=== PATIENT | male | born 1955 | race Caucasian/White ===

== ENCOUNTER 2017-12-27 16:15 | Inpatient (IN) | payer SELFPAY ==
[~2017-12-27] VITALS: Ht 177.8 cm; Wt 71.0 kg
[~2017-12-27 16:15] MED LIST: CYCL5TAB PO; TRAM50TA PO; Z.0.NO CURRENT MEDS
[2017-12-27 16:24] VITALS: BP 169/110; PULSE 98; RESP 20; TEMP 97.5; O2SAT 99
--- NOTE | 2017-12-27 17:01 | RADRPT ---
EXAM DATE/TIME: 12/27/2017 16:40 [place] COMPARISON: No previous studies available for comparison. INDICATIONS : Short of breath. MEDICAL HISTORY : None. SURGICAL HISTORY : None. ENCOUNTER: Initial ACUITY: 1 day PAIN SCORE: 0/10 LOCATION: Bilateral chest FINDINGS: No infiltrate, effusion or pneumothorax demonstrated. Heart size upper limits of normal. Thoracic aorta is mildly tortuous. There is a mild S-shaped thoracolumbar scoliosis. CONCLUSION: No acute cardiopulmonary disease demonstrated. Chapincito Patel MD on December 27, 2017 at 16:58 Board Certified Radiologist. This report was verified electronically.
[2017-12-27 17:28] VITALS: BP 155/105; PULSE 97; RESP 14; O2SAT 100
--- NOTE | 2017-12-27 17:36 | PD ---
HPI Chief Complaint: Respiratory Symptoms Time Seen by Provider: 17:19 Travel History International Travel<30 days: No Contact w/Intl Traveler<30days: No Traveled to known affect area: No History of Present Illness HPI This patient had a episode 4 days ago where he had discomfort in his left arm and felt diaphoretic and had palpitations. He did not have actual chest pain at that time. The following day he had recurrent pain in his left arm. He has had some intermittent dyspnea during the spells as well. He does not have productive cough or fever or injury. He is a smoker for the last 50 years and has family history of CAD. He never goes to physicians and takes no medications. He has no diagnosed cardiac or pulmonary disease. At this point he is not having chest pain or shortness of breath or left arm pain. Denies ever having stress testing. Symptom severity was moderate. No alleviating factors. No exacerbating factors. Duration was 5 hours. symptoms were nonexertional [facility] Social History Alcohol Use: No Tobacco Use: Yes Substance Use: No Allergies-Medications (Allergen,Severity, Reaction): Coded Allergies: No Known Allergies (Unverified , 12/05/12) Reported Meds & Prescriptions Reported Meds & Active Scripts Active Review of Systems General / Constitutional: No: Fever Eyes: No: Visual changes HENT: No: Headaches Cardiovascular: Positive: Palpitations Respiratory: Positive: Shortness of Breath Gastrointestinal: No: Abdominal Pain Genitourinary: No: Dysuria Musculoskeletal: Positive: Pain Skin: No Rash Neurologic: No: Weakness Psychiatric: No: Depression Endocrine: No: Polydipsia Hematologic/Lymphatic: No: Easy Bruising Physical Exam Narrative GENERAL: Well-nourished, well-developed patient in no apparent distress. SKIN: Focused skin assessment reveals no rash and nodules. Skin is Warm and dry. HEAD: Atraumatic. Normocephalic. EYES: Pupils equal and round. No scleral icterus. No injection or drainage. ENT: No nasal bleeding or discharge. Mucous membranes pink and moist. NECK: Trachea midline. No JVD. CARDIOVASCULAR: Regular rate and rhythm. No murmur appreciated. RESPIRATORY: No accessory muscle use. Clear to auscultation. Breath sounds equal bilaterally. GASTROINTESTINAL: Abdomen soft, non-tender, nondistended. Hepatic and splenic margins not palpable. MUSCULOSKELETAL: No obvious deformities. No clubbing. No cyanosis. No edema. NEUROLOGICAL: Awake and alert. No obvious cranial nerve deficits. Motor grossly within normal limits. Normal speech. PSYCHIATRIC: Appropriate mood and affect; insight and judgment normal. Data Data Last Documented VS Vital Signs Date Time Temp Pulse Resp B/P (MAP) Pulse Ox O2 Delivery O2 Flow Rate FiO2 12/27/17 17:28 97 14 155/105 (122) 100 Room Air 12/27/17 16:24 97.5 Orders Orders Complete Blood Count With Diff (12/27/17 16:26) Basic Metabolic Panel (Bmp) (12/27/17 16:26) Act Partial Throm Time (Ptt) (12/27/17 16:) Prothrombin Time / Inr (Pt) (12/27/17:) Magnesium (Mg) (12/27/17:) Ckmb (Isoenzyme) Profile (12/27/17 16:26) Troponin I (12/27/17 16:) Electrocardiogram (12/27/17:) Chest, Pa & Lat (12/27/17 16:) Central Office Technician / Telemetry BALTA.Q8H (12/27/17 17:31) Iv Access Insert/Monitor (12/27/17 17:31) Aspirin (Aspirin) (12/27/17 17:45) CKMB (12/27/17 17:08) CKMB% (12/27/17 17:08) Admit To Inpatient (12/27/17 ) Vital Signs (Adult) Q4H (12/27/17 18:43) Activity Oob With Assistance (12/27/17 18:43) Central Office Technician / Telemetry .CONTINUOUS (12/27/17 18:43) Diet Npo (12/27/17 Dinner) Sodium Chloride 0.9% Flush (Ns Flush) (12/27/17 18:45) Sodium Chloride 0.9% Flush (Ns Flush) (12/27/17 21:00) Basic Metabolic Panel (Bmp) (12/28/17 06:00) Complete Blood Count With Diff (12/28/17 06:00) Troponin I (12/27/17 23:00) Troponin I (12/28/17 05:00) Electrocardiogram (12/27/17 23:00) Electrocardiogram (12/28/17 05:00) Case Management Consult (12/27/17 18:43) Naloxone Inj (Narcan Inj) (12/27/17 18:45) Inpatient Certification (12/27/17 ) Consult Cardiology (12/27/17 ) Aspirin Ec (Ecotrin Ec) (12/28/17 09:00) Carvedilol (Coreg) (12/27/17 21:00) Admit Order (Ed Use Only) (12/27/17 18:46) Labs Laboratory Tests Test 12/27/17 17:08 White Blood Count 7.1 TH/MM3 Red Blood Count 5.14 MIL/MM3 Hemoglobin 15.6 GM/DL Hematocrit 47.4 % Mean Corpuscular Volume 92.2 FL Mean Corpuscular Hemoglobin 30.4 PG Mean Corpuscular Hemoglobin Concent 33.0 % Red Cell Distribution Width 14.1 % Platelet Count 238 TH/MM3 Mean Platelet Volume 9.4 FL Neutrophils (%) (Auto) 64.8 % Lymphocytes (%) (Auto) 22.5 % Monocytes (%) (Auto) 8.4 % Eosinophils (%) (Auto) 3.4 % Basophils (%) (Auto) 0.9 % Neutrophils # (Auto) 4.6 TH/MM3 Lymphocytes # (Auto) 1.6 TH/MM3 Monocytes # (Auto) 0.6 TH/MM3 Eosinophils # (Auto) 0.2 TH/MM3 Basophils # (Auto) 0.1 TH/MM3 CBC Comment DIFF FINAL Differential Comment Prothrombin Time 11.7 SEC Prothromb Time International Ratio 1.2 RATIO Activated Partial Thromboplast Time 26.7 SEC Blood Urea Nitrogen 24 MG/DL Creatinine 1.17 MG/DL Random Glucose 93 MG/DL Calcium Level 9.1 MG/DL Magnesium Level 2.1 MG/DL Sodium Level 141 MEQ/L Potassium Level 5.1 MEQ/L Chloride Level 107 MEQ/L Carbon Dioxide Level 27.3 MEQ/L Anion Gap 7 MEQ/L Estimat Glomerular Filtration Rate 63 ML/MIN Total Creatine Kinase 109 U/L Creatine Kinase MB 2.4 NG/ML Troponin I 33.60 NG/ML [facility] Medical Decision Making Medical Screen Exam Complete: Yes Emergency Medical Condition: Yes Medical Record Reviewed: Yes Differential Diagnosis ACS, angina, musculoskeletal pain Narrative Course I have reviewed the patient's electronic medical record. Patient symptoms are suspicious for an anginal variant despite the lack of actual chest pain. He has multiple risk factors for CAD including [id number] smoking history and family history of CAD I reviewed his EKG which shows sinus rhythm but does show PVCs but no ST elevation I reviewed his chest x-ray which is normal I gave him an aspirin Lab studies are sent CBC is normal Metabolic profile reasonably normal Troponin is come back quite elevated at 33 Presentation seems most consistent with a non-STEMI Patient had pain 3-4 days ago and probably had an acute WA at that time Still having a fair amount of PVCs I reviewed the case in detail with bilingual speech language pathologist on-call Dr. Mcgovern. He recommends aspirin and low-dose Lopressor and heparinizing him but no nitrates and CIC admission I also reviewed with the hospitalist who will admit Critical Care Narrative Aggregate critical care time was 40 minutes. Time to perform other separately billable procedures was not included in the critical care time. My time did not include minutes spent treating any other patients simultaneously or on activities that did not directly contribute to the patient's treatment. The services I provided to this patient were to treat and/or prevent clinically significant deterioration that could result in: Cardiopulmonary arrest, myocardial damage, cardiac arrhythmia I provided critical care services requiring my management, as noted below: Chart data review, documentation time, medication orders and management, vital sign assessments/reviewing monitor data, ordering and reviewing lab tests, ordering and interpreting/reviewing x-rays and diagnostic studies, care of the patient and discussion of the patient with the admitting physicians. Diagnosis Primary Impression: Non-STEMI (non-ST elevated myocardial infarction) Additional Impression: Bigeminy Admitting Information Admitting Physician Requests: Admit Kendell Byrd MD Dec 27, 2017 17:36
[2017-12-27] MEDS ORDERED: ASPIRIN 325 MG TAB PO ONE (17:45)
[2017-12-27 18:02] LABS: AUTOMATED NEUTROPHIL # 4.6 TH/MM3 (1.8-7.7); BASOPHIL # 0.1 TH/MM3 (0-0.2); BASOPHIL % 0.9 % (0.0-2.0); EOSINOPHIL # 0.2 TH/MM3 (0-0.4); EOSINOPHIL % 3.4 % (0.0-4.0); HEMATOCRIT 47.4 % (39.0-51.0); HEMOGLOBIN 15.6 GM/DL (13.0-17.0); LYMPH % 22.5 % (9.0-44.0); LYMPHOCYTE # 1.6 TH/MM3 (1.0-4.8); MEAN CELL VOLUME 92.2 FL (80.0-100.0); MEAN CORPUSCULAR HEMOGLOBIN 30.4 PG (27.0-34.0); MEAN PLATELET VOLUME 9.4 FL (7.0-11.0); MONO % 8.4 % (0.0-8.0); MONOCYTE # 0.6 TH/MM3 (0-0.9); NEUT % 64.8 % (16.0-70.0); PLATELET COUNT 238 TH/MM3 (150-450); RED BLOOD COUNT 5.14 MIL/MM3 (4.50-5.90); RED CELL DISTRIBUTION WIDTH 14.1 % (11.6-17.2); WHITE BLOOD COUNT 7.1 TH/MM3 (4.0-11.0)
[2017-12-27 18:07] LABS: INTERNATIONAL NORMALIZED RATIO 1.2 RATIO; PROTHROMBIN TIME - PATIENT 11.7 SEC (9.8-11.6)
[2017-12-27 18:15] LABS: BICARBONATE 27.3 MEQ/L (21.0-32.0); BLOOD UREA NITROGEN 24 MG/DL (7-18); CALCIUM 9.1 MG/DL (8.5-10.1); CHLORIDE 107 MEQ/L (98-107); CREATININE 1.17 MG/DL (0.60-1.30); GLOMERULAR FILTRATION RATE 63 ML/MIN (>89); GLUCOSE,RANDOM 93 MG/DL (74-106); MAGNESIUM 2.1 MG/DL (1.5-2.5); SODIUM (NA) 141 MEQ/L (136-145)
[2017-12-27] MEDS ORDERED: NALOXONE HCL 0.4 MG/ML AMP IV PUSH PRN (18:45)
[2017-12-27] MEDS ORDERED: SODIUM CHLORIDE 0.9% FLUSH 10 ML FLUSH IV FLUSH PRN (18:45)
[2017-12-27] MEDS ORDERED: HEPARIN SODIUM - IV 10,000 UNITS/10 ML VIAL IV ONE (19:00)
[2017-12-27] MEDS ORDERED: HEPARIN-D5W 25,000 U/250 ML 250 ML IV PRN (19:00)
[2017-12-27 19:19] VITALS: BP 162/93; PULSE 99; RESP 20; TEMP 98.8; O2SAT 100
[2017-12-27] MEDS ORDERED: MORPHINE SULFATE 2 MG/ML SYRINGE IV PUSH PRN (20:00)
--- NOTE | 2017-12-27 20:10 | HHI.HP ---
[facility] Primary Care Physician No Primary Care Physician Admission Diagnosis NSTEMI Diagnoses: Travel History International Travel<30 Days: No Contact w/Intl Traveler <30 Da: No Traveled to Known Affected Are: No History of Present Illness 62-year-old male with no significant past medical history last seen by a primary care physician in 1999 presents to the emergency department for the evaluation of shortness of breath and right arm pain. The patient states his shortness of breath started approximately 4-5 days ago he endorses right arm numbness and tingling with accompanying pain. He states he has chest pressure that is worse with lying down. He also states his shortness of breath is preventing him from sleeping at night because it is worse when he lies flat. Troponin elevated at 33.6. He denies any nausea/vomiting. No abdominal pain. No lateralizing signs/symptoms. Review of Systems Except as stated in HPI: all other systems reviewed are Neg Past Family Social History Past Medical History History of hypertension, not currently on any medications Past Surgical History None Reported Medications Reported Meds & Active Scripts Active No Active Prescriptions or Reported Medications Allergies: Coded Allergies: No Known Allergies (Unverified Allergy, Unknown, 12/27/17) Family History Father with CAD Social History Smokes approximately one pack per day. Denies alcohol and illicit drugs. Physical Exam Vital Signs Vital Signs Date Time Temp Pulse Resp B/P (MAP) Pulse Ox O2 Delivery O2 Flow Rate FiO2 12/27/17 19:19 98.8 99 20 162/93 (116) 100 Room Air 12/27/17 17:28 97 14 155/105 (122) 100 Room Air 12/27/17 17:28 24 100 Room Air 12/27/17 17:22 Room Air 12/27/17 16:24 97.5 98 20 169/110 (129) 99 Physical Exam GENERAL: male sitting up in bed SKIN: No rashes, ecchymoses or lesions. Cool and dry. HEAD: Atraumatic. Normocephalic. No temporal or scalp tenderness. EYES: Pupils equal round and reactive. Extraocular motions intact. No scleral icterus. No injection or drainage. ENT: Nose without bleeding, purulent drainage or septal hematoma. Throat without erythema, tonsillar hypertrophy or exudate. Uvula midline. Airway patent. NECK: Trachea midline. No JVD or lymphadenopathy. Supple, nontender, no meningeal signs. CARDIOVASCULAR: Regular rate and rhythm without murmurs, gallops, or rubs. RESPIRATORY: Clear to auscultation. Breath sounds equal bilaterally. No wheezes , rales, or rhonchi. GASTROINTESTINAL: Abdomen soft, non-tender, nondistended. No hepato-splenomegaly , or palpable masses. No guarding. MUSCULOSKELETAL: Extremities without clubbing, cyanosis, or edema. No joint tenderness, effusion, or edema noted. No calf tenderness. NEUROLOGICAL: Awake and alert. Cranial nerves II through XII intact. Motor and sensory grossly within normal limits. Normal speech. Laboratory Laboratory Tests Test 12/27/17 17:08 White Blood Count 7.1 Red Blood Count 5.14 Hemoglobin 15.6 Hematocrit 47.4 Mean Corpuscular Volume 92.2 Mean Corpuscular Hemoglobin 30.4 Mean Corpuscular Hemoglobin Concent 33.0 Red Cell Distribution Width 14.1 Platelet Count 238 Mean Platelet Volume 9.4 Neutrophils (%) (Auto) 64.8 Lymphocytes (%) (Auto) 22.5 Monocytes (%) (Auto) 8.4 Eosinophils (%) (Auto) 3.4 Basophils (%) (Auto) 0.9 Neutrophils # (Auto) 4.6 Lymphocytes # (Auto) 1.6 Monocytes # (Auto) 0.6 Eosinophils # (Auto) 0.2 Basophils # (Auto) 0.1 CBC Comment DIFF FINAL Differential Comment Prothrombin Time 11.7 Prothromb Time International Ratio 1.2 Activated Partial Thromboplast Time 26.7 Blood Urea Nitrogen 24 Creatinine 1.17 Random Glucose 93 Calcium Level 9.1 Magnesium Level 2.1 Sodium Level 141 Potassium Level 5.1 Chloride Level 107 Carbon Dioxide Level 27.3 Anion Gap 7 Estimat Glomerular Filtration Rate 63 Total Creatine Kinase 109 Creatine Kinase MB 2.4 Troponin I 33.60 Result Diagram: 12/27/17170712/27/171707 Caprini VTE Risk Assessment Caprini VTE Risk Assessment: Mod/High Risk (score >= 2) Caprini Risk Assessment Model Point Value = 1 Point Value = 2 Point Value = 3 Point Value = 5 Age 41-60 Minor surgery BMI > 25 kg/m2 Swollen legs Varicose veins or History of unexplained or recurrent spontaneous Oral contraceptives or hormone replacement Sepsis (< 1 month) Serious lung disease, including pneumonia (< 1 month) Abnormal pulmonary function Acute myocardial infarction Congestive heart failure (< 1 month) History of inflammatory bowel disease Medical patient at bed rest Age 61-74 Arthroscopic surgery Major open surgery (> 45 min) Laparoscopic surgery (> 45 min) Malignancy Confined to bed (> 72 hours) Immobilizing plaster cast Central venous access Age >= 75 History of VTE Family history of VTE Factor V Leiden Prothrombin [id number] Lupus anticoagulant Anticardiolipin antibodies Elevated serum homocysteine Heparin-induced thrombocytopenia Other congenital or acquired thrombophilia Stroke (< 1 month) Elective arthroplasty Hip, pelvis, or leg fracture Acute spinal cord injury (< 1 month) Prophylaxis Regimen Total Risk Factor Score Risk Level Prophylaxis Regimen 0-1 Low Early ambulation 2 Moderate Order ONE of the following: *Sequential Compression Device (SCD) *Heparin 5000 units SQ BID 3-4 Higher Order ONE of the following medications: *Heparin 5000 units SQ TID *Enoxaparin/Lovenox 40 mg SQ daily (WT < 150 kg, CrCl > 30 mL/min) *Enoxaparin/Lovenox 30 mg SQ daily (WT < 150 kg, CrCl > 10-29 mL/min) *Enoxaparin/Lovenox 30 mg SQ BID (WT < 150 kg, CrCl > 30 mL/min) AND/OR *Sequential Compression Device (SCD) 5 or more Highest Order ONE of the following medications: *Heparin 5000 units SQ TID (Preferred with Epidurals) *Enoxaparin/Lovenox 40 mg SQ daily (WT < 150 kg, CrCl > 30 mL/min) *Enoxaparin/Lovenox 30 mg SQ daily (WT < 150 kg, CrCl > 10-29 mL/min) *Enoxaparin/Lovenox 30 mg SQ BID (WT < 150 kg, CrCl > 30 mL/min) AND *Sequential Compression Device (SCD) Assessment and Plan Assessment and Plan Assessment/plan: 1. NSTEMI Initial troponin 33.6 EKG shows NSR with PVCs; no ST segment elevation or depression, personally reviewed Cardiology consulted, appreciate assistance Heparin bolus and drip Nothing by mouth Morphine for pain Aspirin Coreg 2. Hypertension As above FEN NPO NS at 100 cc/hr Electrolytes: Monitor and replete when necessary Heparin ggt Case management consulted to assist with outpatient follow-up Physician Certification 2 Midnight Certification Type: Admission for Inpatient Services Order for Inpatient Services The services are ordered in accordance with Medicare regulations or non- Medicare payer requirements, as applicable. In the case of services not specified as inpatient-only, they are appropriately provided as inpatient services in accordance with the 2-midnight benchmark. Estimated LOS (days): 2 2 days is the estimated time the patient will need to remain in the hospital, assuming treatment plan goals are met and no additional complications. Post-Hospital Plan: Not yet determined Stephanie Jeffers MD Dec 27, 2017 20:10
[2017-12-27 21:00] VITALS: BP 137/97; PULSE 80; PULSE 90; RESP 16; TEMP 98.2; O2SAT 100
[2017-12-27] MEDS: SODIUM CHLORIDE 0.9% FLUSH 10 ML FLUSH IV FLUSH SCH (21:00)
[2017-12-27] MEDS: CARVEDILOL 12.5 MG TAB PO SCH (21:09)
[2017-12-27] MEDS: SODIUM CHLOR 0.9% 1000 ML INJ 1,000 ML IV SCH (21:10)
[2017-12-27 22:00] VITALS: PULSE 86
[2017-12-27 23:00] VITALS: BP 106/81; PULSE 68; PULSE 78; RESP 16; TEMP 97.9; O2SAT 98
[2017-12-28] VITALS (22 sets, daily range): BP systolic 112–131; BP diastolic 72–93; PULSE 56–82; RESP 16–22; TEMP 97.5–98; O2SAT 97–99
[2017-12-28] MEDS ORDERED: HEPARIN SODIUM - IV 10,000 UNITS/10 ML VIAL IV PRN ×2 (01:00)
[2017-12-28 02:14] LABS: AUTOMATED NEUTROPHIL # 3.8 TH/MM3 (1.8-7.7); BASOPHIL # 0.1 TH/MM3 (0-0.2); EOSINOPHIL # 0.3 TH/MM3 (0-0.4); EOSINOPHIL % 4.3 % (0.0-4.0); HEMATOCRIT 39.8 % (39.0-51.0); HEMOGLOBIN 13.6 GM/DL (13.0-17.0); LYMPH % 32.1 % (9.0-44.0); LYMPHOCYTE # 2.2 TH/MM3 (1.0-4.8); MEAN CELL VOLUME 90.2 FL (80.0-100.0); MEAN CORPUSCULAR HEMOGLOBIN 30.9 PG (27.0-34.0); MEAN CORPUSCULAR HGB CONC 34.2 % (32.0-36.0); MEAN PLATELET VOLUME 8.9 FL (7.0-11.0); MONO % 7.7 % (0.0-8.0); MONOCYTE # 0.5 TH/MM3 (0-0.9); NEUT % 54.9 % (16.0-70.0); PLATELET COUNT 214 TH/MM3 (150-450); RED BLOOD COUNT 4.41 MIL/MM3 (4.50-5.90); WHITE BLOOD COUNT 6.9 TH/MM3 (4.0-11.0)
[2017-12-28 02:37] LABS: BICARBONATE 23.8 MEQ/L (21.0-32.0); CALCIUM 8.1 MG/DL (8.5-10.1); CREATININE 1.01 MG/DL (0.60-1.30)
[2017-12-28 02:40] LABS: TROPONIN I 26.2 NG/ML (0.02-0.05)
[2017-12-28] MEDS: SODIUM CHLOR 0.9% 1000 ML INJ 1,000 ML IV SCH ×2 (06:52→15:32)
[2017-12-28] MEDS: NITROGLYCERIN 2% OINT 1 GM PACKET TOPICAL SCH ×2 (06:54→17:15)
--- NOTE | 2017-12-28 08:04 | EKG ---
Date Performed: 12/27/2017 Time Performed: 18:33:50 PTAGE: 62 years EKG: SUPRAVENTRICULAR RHYTHM LOW QRS VOLTAGE IN EXTREMITY LEADS LEFT ANTERIOR FASCICULAR BLOCK M ODERATE T-WAVE ABNORMALITY, CONSIDER LATERAL ISCHEMIA ABNORMAL ECG NO PREVIOUS TRACING DOCTOR: Cleveland Alas Interpretating Date/Time 12/28/2017 08:02:54
--- NOTE | 2017-12-28 08:06 | EKG ---
Date Performed: 12/27/2017 Time Performed: 17:06:51 PTAGE: 62 years EKG: SUPRAVENTRICULAR RHYTHM LOW QRS VOLTAGE IN EXTREMITY LEADS LEFT ANTERIOR FASCICULAR BLOCK N ONSPECIFIC ST & T-WAVE ABNORMALITY ABNORMAL ECG NO PREVIOUS TRACING DOCTOR: Cleveland Alas Interpretating Date/Time 12/28/2017 08:06:04
[2017-12-28] MEDS: SODIUM CHLORIDE 0.9% FLUSH 10 ML FLUSH IV FLUSH SCH ×2 (08:59→21:00)
[2017-12-28] MEDS: CARVEDILOL 12.5 MG TAB PO SCH (09:00)
[2017-12-28] MEDS ORDERED: ASPIRIN EC 325 MG TABEC PO SCH (09:00)
[2017-12-28] MEDS ORDERED: HEPARIN-NS/PF FLUSH BAG 2,000 ML IV FLUSH ONE (11:17)
[2017-12-28] MEDS ORDERED: MIDAZOLAM HCL 2 MG/2 ML VIAL ONE (11:28)
--- NOTE | 2017-12-28 11:51 | MB ---
cc: Alec Pelaez MD DATE: 12/28/2017 For evaluation of chest pain and elevated troponin. Hugh Hastings is a 62-year-old man who has not been seeing a doctor in almost 20 years. He is an active smoker, a pack a day. His father has coronary disease. He describes getting shortness of breath and discomfort in his chest and right arm starting 5 days ago. He has had pressure in his chest and shortness of breath intermittently since then. Came in with an elevated troponin of 33.6. Denies use of cocaine or illicit drugs. He states his blood pressure was high years ago but has not been seeing anybody or taking any blood pressure medications. FAMILY HISTORY: His father has coronary disease. SOCIAL HISTORY: Notable for smoking. He lives on social security. PAST SURGICAL HISTORY: Negative. PHYSICAL EXAMINATION: Shows well-developed, well-nourished white male, in no acute distress. Initial blood pressures here were quite elevated. HEENT: Unremarkable. NECK: No JVD. No bruits. CHEST: Clear to auscultation. CARDIAC: S1, S2. Regular rate and rhythm. No murmurs, gallops. ABDOMEN: Soft, nontender, no masses or organomegaly. EXTREMITIES: No clubbing, cyanosis or edema. Chest x-ray is showing no acute disease. LABORATORIES: His CBC is mostly unremarkable. Creatinine is normal. Troponin has fallen from 33.6 to 26.2. EKG is markedly abnormal. There is a sinus rhythm, left anterior fascicular block, poor R-wave progression, lateral T-wave abnormality suggesting ischemia, cannot rule out anterior RI. IMPRESSION: Noncompliance with medical care; hypertension, untreated; evidence for a [id number] myocardial infarction with symptoms starting 5 days prior; tobaccoism. PLAN: Perform diagnostic cath, possible intervention. Informed consent has been obtained. MD ROBERTO Whitlock/BANG , 11:36 AM , 11:50 AM
[2017-12-28] MEDS ORDERED: STERILE WATER FOR INJECTION 10 ML VIAL ONE (12:11)
[2017-12-28] MEDS ORDERED: BIVALIRUDIN 250 MG VIAL ONE (12:11)
[2017-12-28] MEDS ORDERED: NITROGLYCERIN INJ 5 ML ONE (12:28)
--- NOTE | 2017-12-28 13:10 | EKG ---
Date Performed: 12/28/2017 Time Performed: 05:02:50 PTAGE: 62 years EKG: Sinus rhythm with PVC(s) Prolonged QT interval Left anterior fascicular block Possible anterior infarct - age und etermined Inferior/lateral T wave changes may be due to myocardial ischemia Low QRS voltages in limb leads Abnormal ECG PREVIOUS TRACING : 12/27/2017 22.55 DOCTOR: Cleveland Aals Interpretating Date/Time 12/28/2017 13:07:44
--- NOTE | 2017-12-28 13:11 | EKG ---
Date Performed: 12/27/2017 Time Performed: 22:55:54 PTAGE: 62 years EKG: Sinus rhythm with PVC(s) Prolonged QT interval Left anterior fascicular block Possible anterior infarct - age und etermined Possible left ventricular hypertrophy Lateral T wave changes may be due to hypertrophy and/ or ischemia Low QRS voltages in limb leads Abnormal ECG PREVIOUS TRACING : 12/27/2017 18.33 DOCTOR: Cleveland Alas Interpretating Date/Time 12/28/2017 13:08:21
[2017-12-28] MEDS ORDERED: CLOPIDOGREL 300 MG TAB ONE (13:17)
[2017-12-28] MEDS ORDERED: BIVALIRUDIN INJ 250 MG in SODIUM CHLORIDE 0.9% INJ 50 ML IV SCH (13:33)
[2017-12-28] MEDS ORDERED: SODIUM CHLOR 0.9% 1000 ML INJ 1,000 ML IV SCH (13:33)
[2017-12-28] MEDS ORDERED: oxyCODONE/ACETAMINOPHEN 5 MG/325 MG TAB PO PRN ×2 (13:45→14:45)
[2017-12-28] MEDS ORDERED: ONDANSETRON HCL 4 MG/2 ML VIAL IV PUSH PRN (13:45)
[2017-12-28] MEDS ORDERED: BACITRACIN OINT 0.9 GM PKT TOP ONE (13:45)
[2017-12-28] MEDS ORDERED: SODIUM CHLORIDE 0.9% FLUSH 10 ML FLUSH IV FLUSH PRN (13:45)
[2017-12-28] MEDS ORDERED: MISC INFORMATION XX ONE (13:45)
--- NOTE | 2017-12-28 13:46 | CATHPROC ---
[employer] HIS Report Study Information Study Number Admission Scheduled Start Study Start [id number] Dec 27 2017 6:48PM 12/28/2017 Dec 28 2017 11:27AM [place] Service Cardiac Catheterization Admit Source Facility Department Other [facility] - [facility] Physician and Clinical Staff Initial Alec Huerta Logistics System EngineerSam ViverosRN Logistics System EngineerAn Moser,RUBEN Recorder Lorenzo MIRANDA, Ramone Cloud,RT(R) Procedures Performed Procedure Location (Site) Vessel Name Angiogram LV LV Ventricle Coronary Angiograms LCA Left Coronary Coronary Angiograms RCA Right Coronary Drug Eluting Inflatio DIAG Prox Left Coronary Drug Eluting Inflatio LAD Mid Left Coronary Drug Eluting Inflatio LPDA CIRC L Heart Cath PTCA DIAG Prox Left Coronary PTCA ADD ON'S Wire insertion Fem Art (right) Femoral Art Equipment Time Oil Inspector Description Size Mfg Part Number Used/Scraped WIRE, WHISPER W/HYDROCOAT [id number] 12:38 UNGER [employer] 190CM Used 190CM *[id number] TRANSDUCER, TRUWAVE [id number] 11:33 OSUNA GUIDRY * Used W/STOCKCOCK *[id number] *[id number] *[id number] PIGTAIL ANG. 145 INFINITI [id number] CATHETER *[id number] *[id number] 13:18 DAIG/[facility] MEDICAL ANGIOSEAL, FR6 VIP FR 6 Used *[id number] 11:33 MEDLINE INDUSTRIES PACK, CCL CUSTOM * Used *[id number] 11:33 MEDLINE PACER PEN, SKIN DUAL W/ RULER * Used *[id number] 12:42 MEDTRONIC BALLOON, 1.5 X 10MM EUPHORA 10MM Used *[id number] 12:49 MEDTRONIC BALLOON, 2.0 X 20MM EUPHORA 20MM Used *[id number] BALLOON, 2.25 X 20MM NC [id number] 13:00 MEDTRONIC 20MM Used EUPHORA *[id number] 12:56 MEDTRONIC STENT, 2.25 26MM MINDY 2.25 26MM [id number] 13:12 MEDTRONIC STENT, 2.5 12MM MINDY 2.5 12MM Used *[id number] 12:29 MEDTRONIC STENT, 3.0 22MM MINDY 3.0 22MM Used *[id number] 12:11 Spoke MEDICAL 30 MAXX INDEFLATOR Used *[id number] 11:33 Spoke MEDICAL SHEATH, FR6.5 PRELUDE 11CM FR 6.5 038ACT Used *[id number] [id number] 11:33 Spoke MEDICAL WIRE, 3MMJ .035 180CM 180CM Used *[id number] 11:33 NAMIC MANIFOLD, 4 PORT * Used *[id number] 11:33 NYCOMED OMNIPAQUE, 350 MG, 100ML 100ML [id number] Used 12:11 NYCOMED OMNIPAQUE, 350 MG, 50ML 50ML [id number] Used [id number] 11:33 [place] MEDICAL BLANKET,WARM AIR CCL * Used *[id number] 12:19 [place] PRIME WIRE, VERRATA 185CM 185CM [id number] *[id number] Used Equipment Model, Serial, Lot Number and Expiration Data Description Model Number Serial Number Lot Number Expiration Date ANGIOSEAL, FR6 VIP [id number] 08-25-2018 BALLOON, 2.25 X 20MM DC [id number] 06-01-2019 EUPHORA STENT, 2.25 26MM MINDY [id number] 09-12-2019 STENT, 2.5 12MM MINDY [id number] 08-30-2019 STENT, 3.0 22MM MINDY [id number] 08-13-2019 History: Current Medications Medication Dosage/Unit Route Frequency Last Date/Time Taken Beta Samra ASA History: Allergies Allergy Reaction NKDA History: Risk Factors Family History of Hypertension Dyslipidemia Previous AK Previous Heart Failure Premature CAD Yes No Yes No No Prior Valve Prior PCI Prior CABG Surgery No No No Cerebrovascular Peripheral Artery Chronic Lung On Dialysis Diabetes Disease Disease Disease No No No No No History: Stress Tests Stress or Imaging Studies Performed No History: Other Current Smoker Method Packs a Day Years Used Pack Years Yes Cigarettes 1 47 47 Labs Hgb (g/dl) Hct (%) WBC (l/cumm) 11.60-17.00 35.00-51.00 4.00-11.00 13.6 39.8 6.9 Glucose (mg/dl) BUN (mg/dl) Creatinine (mg/dl) BUN:Creatinine (1:x) 74.00-106.00 7.00-18.00 0.50-1.30 10.00-20.00 86 23 1.0 23 Na (meq/l) K (meq/l) 136.00-145.00 3.50-5.10 142 4.1 Troponin I (ng/ml) CPK (u/l) CPK-MB (ng/ML) 0.02-0.05 26.00-308.00 0.50-3.60 26.2 109 Not Drawn Medication Medication Total Dose (Bolus/Oral) Medication Total Dosage/Unit 1% XYLOCAINE 10 mL ANGIOMAX BOLUS 11 mL NTG (IC) 150 mcg PLAVIX 600 mg VERSED 1 mg Medications (Bolus/Oral) Medication Time Given Dosage/Unit Administered By Reason VERSED 12/28/2017 11:46:35 AM 1 mg Sam Arroyo 1 mg VERSED given by Sam Arroyo RN via Peripheral IV. Ordered by Alec Pelaez. 1% XYLOCAINE 12/28/2017 11:47:14 AM 10 mL Alec Pelaez 10 mL 1% XYLOCAINE given by Alec Pelaez in Right Groin via Subcutaneous. Ordered by Alec Pelaez. ANGIOMAX BOLUS 12/28/2017 12:22:00 PM 11 mL An Albert 11 mL ANGIOMAX BOLUS given by An Albert RN via Peripheral IV. Ordered by Alec Pelaez. NTG (IC) 12/28/2017 1:02:31 PM 150 mcg Alec Pelaez 150 mcg NTG (IC) given by Alec Pelaez via Intra-coronary. Ordered by Alec Pelaez. PLAVIX 12/28/2017 1:30:21 PM 600 mg An Albert 600 mg PLAVIX given by An Albert, RUBEN via Oral. Ordered by Alec Pelaez. Medication (Drip) Medication Time Given Dosage/Unit Concentration/Unit Diluent (ml) Solution IV Bolus 12/28/2017 12:20:22 PM 100 mL (Bolus) NaCl .9 100 mL (Bolus) IV Bolus given by An Albert RN via Peripheral IV. Using NaCl .9. Ordered by Alec Carmona. Initial Case Assessment Cardiovascular HR NIBP 57 125/88 Edema Present Skin color Skin None Normal Warm Dry Circulatory - Right Pulses Dorsalis Pedis Femoral 2 2 Scale (0,1,2,3,4,d) Circulatory - Left Pulses Dorsalis Pedis Femoral 2 2 Scale (0,1,2,3,4,d) Neurological State Oriented to time-place- Alert Moves all extremities person Respiration - General SpO2 (%) 97 Chronological Log Time Study Chronological Log 11:14:34 Patient arrived via Bed. 11:14:36 Patient Name, D.O.B, / Armband Verified By R.N. 11:15:40 Pre-op and post- op instructions given; patient acknowledges understanding of instructions. 11:20:10 History and physical on the chart or being dictated. 11:20:19 Masha Prominences Protected Vitals capture started with the following parameters, Patient=Adult, Interval=5 min, Initial Pr koukqr=660 mmHg, 11:27:24 Deflation Rate=5 mmHg, Cuff placed on Unknown 11:27:38 Consent signed by the physician and the patient and verified by the [facility] staff. 11:27:43 Patient has been NPO for More than 6Hrs. 11:27:59 HR=67 bpm, YMYR=847/88 mmhg, SpO2=95.0 %, Resp=23 B/min, Susan=10 11:33:02 HR=66 bpm, JEFG=762/75 mmhg, SpO2=97.0 %, Resp=21 B/min, Adrian=2 11:36:38 MD paged 11:36:50 Pressure channel 1 zeroed. 11:37:59 HR=68 bpm, QLZQ=844/91 mmhg, SpO2=98 %, Resp=18 B/min, Adrian=2 11:40:44 MD arrived. 11:40:48 Reference ECG taken 11:41:12 A # 20 IV was noted in the Forearm (right). Grade = 0 11:42:36 Skin Breakdown- none reported by pt 11:43:00 HR=65 bpm, YHTL=274/86 mmhg, Resp=16 B/min, Adrian=2 Assessment: Initial Case, HR=57 BPM, KKVI=009/88 mmhg, Edema=None, Color=Normal, Skin = Warm, D ry Right Pulses: Titus Ped=2, Femoral=2 11:43:51 Left Pulses: Titus Ped=2, Femoral=2 Neurological: State=Alert, Ox3, STEPHENS Respiration: SpO2=97 % Time Out. Correct patient, correct procedure, correct physician, power injector loaded, or not loaded with contrast with 11:45:28 surgical team present. Time Out Concurred by MD and individual staff in procedure. 11:45:46 Case Start 11:46:35 1 mg VERSED given by Sam Arroyo, RN via Peripheral IV. Ordered by Alec Pelaez. 11:47:14 10 mL 1% XYLOCAINE given by Alec Pelaez in Right Groin via Subcutaneous. Ordered by Alec Santos. 11:47:57 HR=73 bpm, OELW=258/90 mmhg, SpO2=95.0 %, Resp=23 B/min, Adrian=2 11:48:27 Access site was Right Femoral Artery. A PIGTAIL ANG. 145 INFINITI CATHETER FR 6 was advanced over a wire. OMNIPAQUE, 350 MG, 100ML 10 0ML was 11:48:58 used for injections. Recorded Pressure: LV, HR=71, Condition=Condition 1 11:49:55 (Left Ventricle) LV 118/13/26 11:50:35 The LV was injected at 10 cc/sec for a total of 40. OMNIPAQUE, 350 MG, 100ML 100ML used. Recorded Pressure: LV, Ao, HR=77, Condition=Condition 1 11:51:43 (Left Ventricle) LV 105/7/14, (Aorta) Ao 105/71/85 11:52:58 HR=75 bpm, WYFM=780/86 mmhg, Resp=23 B/min, Adrian=2 After removing the current catheter a JL 4.5 INFINITI CATHETER FR 6 was advanced over a WIRE, 3 MMJ .035 180CM 11:53:22 180CM. 11:57:37 The LCA was injected and visualized at various angles. OMNIPAQUE, 350 MG, 100ML 100ML used . 11:58:40 HR=73 bpm, ZIEJ=661/83 mmhg, SpO2=96.0 %, Resp=20 B/min, Adrian=2 After removing the current catheter a 3DRC INFINITI CATHETER FR 6 was advanced over a WIRE, 3MM J .035 180CM 11:59:05 180CM. 12:00:58 The RCA was injected and visualized at various angles. OMNIPAQUE, 350 MG, 100ML 100ML used . 12:03:00 HR=69 bpm, BDVY=599/80 mmhg, SpO2=95.0 %, Resp=21 B/min, Adrian=2 12:03:50 Activated Clotting Time Drawn 12:08:02 HR=71 bpm, FGTT=255/87 mmhg, SpO2=97.0 %, Resp=20 B/min, Adrian=2 12:08:22 Catheter was removed 12:08:44 ACT (Normal Range 90-180) = 198 12:10:47 OMNIPAQUE, 350 MG, 100ML 100ML and 30 MAXX INDEFLATOR added. 12:13:03 HR=72 bpm, XGSI=485/89 mmhg, SpO2=98.0 %, Resp=21 B/min, Adrian=2 A XB 4.5 GUIDE CATHETER FR 6 was advanced over a wire. OMNIPAQUE, 350 MG, 100ML 100ML was used for 12:14:15 injections. Recorded Pressure: Ao, HR=64, Condition=Condition 1 12:15:33 (Aorta) Ao 122/79/99 12:15:55 Pressure channel 1 zeroed. 12:17:45 A PRIME WIRE, VERRATA 185CM 185CM was inserted via Fem Art (right). 12:18:02 HR=72 bpm, PXUM=237/88 mmhg, SpO2=97.0 %, Resp=18 B/min, Adrian=2 12:20:22 100 mL (Bolus) IV Bolus given by An Alebrt RN via Peripheral IV. Using NaCl .9. Orde red by Alec Pelaez. 12:22:00 11 mL ANGIOMAX BOLUS given by An Albert RN via Peripheral IV. Ordered by Adrian Pelaez. 12:23:01 HR=73 bpm, DWBY=276/90 mmhg, SpO2=97 %, Resp=19 B/min, Pain=0, Susan=10, Adrian=2 12:23:56 Interventional wire has crossed the lesion 12:25:52 Flow Wire was was placed in the LAD Mid. The FFR measures ~FFR~ percent. The IFR measures 0 .8 Percent. 12:28:04 HR=66 bpm, EPGS=635/82 mmhg, SpO2=99 %, Resp=18 B/min, Pain=0, Susan=10, Adrian=2 A STENT, 3.0 22MM MINDY 3.0 22MM was advanced through a XB 4.5 GUIDE CATHETER FR 6 over a PRIME WIRE, 12:30:15 VERRATA 185CM 185CM. A STENT, 3.0 22MM MINDY 3.0 22MM was deployed using a 30 MAXX INDEFLATOR at 20 atmospheres for 35 seconds in 12:31:22 the LAD Mid. 12:32:11 Delivery device removed 12:33:05 HR=69 bpm, ICVH=015/90 mmhg, SpO2=98 %, Resp=23 B/min, Pain=0, Susan=10, Adrian=2 12:34:09 Wire removed from LAD inserted into diagonal 12:37:18 Wire removed 12:38:04 HR=67 bpm, OULS=542/88 mmhg, SpO2=98 %, Resp=21 B/min, Pain=0, Susan=10, Adrian=2 12:38:34 A WIRE, WHISPER W/HYDROCOAT 190CM 190CM was inserted via Fem Art (right). A BALLOON, 1.5 X 10MM EUPHORA 10MM was inserted over WIRE, WHISPER W/HYDROCOAT 190CM 190CM via the 12:42:09 DIAG Prox. 12:43:05 HR=67 bpm, XLMW=645/91 mmhg, Resp=18 B/min, Pain=0, Adrian=2 A BALLOON, 1.5 X 10MM EUPHORA 10MM over a WIRE, WHISPER W/HYDROCOAT 190CM 190CM in the DIAG Pro x 12:44:29 was inflated using a 30 MAXX INDEFLATOR at 8 maxx for 15 sec. A BALLOON, 1.5 X 10MM EUPHORA 10MM over a WIRE, WHISPER W/HYDROCOAT 190CM 190CM in the DIAG Pro x 12:45:18 was inflated using a 30 MAXX INDEFLATOR at 8 maxx for 15 sec. A BALLOON, 1.5 X 10MM EUPHORA 10MM over a WIRE, WHISPER W/HYDROCOAT 190CM 190CM in the DIAG Pro x 12:45:39 was inflated using a 30 MAXX INDEFLATOR at 8 maxx for 15 sec. A BALLOON, 1.5 X 10MM EUPHORA 10MM over a WIRE, WHISPER W/HYDROCOAT 190CM 190CM in the DIAG Pro x 12:46:05 was inflated using a 30 MAXX INDEFLATOR at 14 maxx for 25 sec. A BALLOON, 1.5 X 10MM EUPHORA 10MM over a WIRE, WHISPER W/HYDROCOAT 190CM 190CM in the DIAG Pro x 12:46:30 was inflated using a 30 MAXX INDEFLATOR at 14 maxx for 25 sec. 12:48:37 HR=72 bpm, SXLR=734/95 mmhg, SpO2=99.0 %, Resp=19 B/min, Pain=0, Adrian=2 12:48:49 Balloon Removed. A BALLOON, 2.0 X 20MM EUPHORA 20MM was inserted over WIRE, WHISPER W/HYDROCOAT 190CM 190CM via the 12:49:02 DIAG Prox. A BALLOON, 2.0 X 20MM EUPHORA 20MM over a WIRE, WHISPER W/HYDROCOAT 190CM 190CM in the DIAG Pro x 12:51:50 was inflated using a 30 MAXX INDEFLATOR at 10 maxx for 25 sec. A BALLOON, 2.0 X 20MM EUPHORA 20MM over a WIRE, WHISPER W/HYDROCOAT 190CM 190CM in the DIAG Pro x 12:52:30 was inflated using a 30 MAXX INDEFLATOR at 10 maxx for 25 sec. 12:53:09 HR=71 bpm, DXTV=760/72 mmhg, SpO2=97.0 %, Resp=20 B/min, Pain=0, Adrian=2 12:54:20 Balloon Removed. A STENT, 2.25 26MM MINDY 2.25 26MM was advanced through a XB 4.5 GUIDE CATHETER FR 6 over a WIRE , WHISPER 12:55:23 W/HYDROCOAT 190CM 190CM. A STENT, 2.25 26MM MINDY 2.25 26MM was deployed using a 30 MAXX INDEFLATOR at 14 atmospheres for 30 seconds 12:56:43 in the DIAG Prox. 12:58:08 HR=70 bpm, NPIJ=903/85 mmhg, SpO2=98.0 %, Resp=20 B/min, Pain=0, Adrian=2 12:58:33 Delivery device removed A BALLOON, 2.25 X 20MM NC EUPHORA 20MM was inserted over WIRE, WHISPER W/HYDROCOAT 190CM 190CM via 12:59:54 the DIAG Prox. A BALLOON, 2.25 X 20MM NC EUPHORA 20MM over a WIRE, WHISPER W/HYDROCOAT 190CM 190CM in the DIAG 13:01:35 Prox was inflated using a 30 MAXX INDEFLATOR at 20 maxx for 25 sec. 13:02:31 150 mcg NTG (IC) given by Alec Pelaez via Intra-coronary. Ordered by Alec Pelaez. 13:03:05 HR=67 bpm, QVWX=866/82 mmhg, Resp=23 B/min, Pain=0, Adrian=2 13:03:13 Balloon Removed. 13:06:05 Wire redirected into PDA 13:08:08 HR=70 bpm, SHBN=203/81 mmhg, SpO2=98.0 %, Resp=21 B/min, Pain=0, Adrian=2 A STENT, 2.5 12MM MINDY 2.5 12MM was advanced through a XB 4.5 GUIDE CATHETER FR 6 over a WIRE, WHISPER 13:11:48 W/HYDROCOAT 190CM 190CM. A STENT, 2.5 12MM MINDY 2.5 12MM was deployed using a 30 MAXX INDEFLATOR at 12 atmospheres for 4 5 seconds in 13:12:18 the LPDA. 13:13:03 HR=69 bpm, KRZK=147/90 mmhg, Resp=15 B/min, Pain=0, Adrian=2 13:14:21 Delivery device removed 13:16:09 Wire removed 13:16:13 Catheter was removed 13:17:12 An injection in the Fem Art (right) was made through the SHEATH, FR6.5 PRELUDE 11CM FR 6.5 . 13:17:51 ANGIOSEAL, FR6 VIP FR 6 placement in the Fem Art (right) 13:18:06 HR=74 bpm, ZNAT=078/102 mmhg, SpO2=98.0 %, Resp=23 B/min, Pain=0, Adrian=2 13:19:48 Case End 13:20:35 Sterile dressing applied to site 13:20:38 No case complications noted. 13:23:07 HR=76 bpm, YDKX=301/88 mmhg, SpO2=98.0 %, Resp=18 B/min, Pain=0, Adrian=2 13:23:27 Implantable Device card placed in patient's chart. 13:23:30 Bedside Report will be given. 13:25:25 Vitals capture stopped. 13:25:47 A Left Heart Cath was performed. 13:26:[facility] 13:29:23 [facility] called. Spoke to Vi 13:30:21 600 mg PLAVIX given by An Albert RN via Oral. Ordered by Alec Pelaez. End Study - Contrast Media Used In Study Contrast Total Opened (mL) Total Used (mL) Total Wasted (mL) Omnipaque 225 225 0 End Study - Maximum Contrast Load Max Contrast Load (mL) 357.5 End Study - Radiation Exposure Fluoro Time (minutes) 21.5 End Study - Patient Disposition Complications Transferred To Interventional Outcome No Telemetry Bed successful
[2017-12-28] MEDS ORDERED: IOHEXOL 350 MG/ML 100 ML BTL (for Cath Lab) OTHER ONE (14:09)
[2017-12-28] MEDS ORDERED: IOHEXOL 350 MG/ML 50 ML BTL (for Cath Lab) OTHER ONE (14:09)
--- NOTE | 2017-12-28 14:10 | MA ---
cc: Alec Pelaez MD DATE: 12/28/2017 PROCEDURE: 1. Left heart catheterization, left ventriculography, coronary angiography. 2. Primary stenting of the mid-left anterior descending artery. 3. Balloon angioplasty and stenting of the second diagonal branch of the left anterior descending artery. 4. Direct stenting of the left posterior descending artery branch. 5. Right femoral artery angiography with Angio-Seal placement. DESCRIPTION OF PROCEDURE: The patient was brought to the cardiac catheterization lab under urgent conditions. The right groin was prepped and draped in sterile fashion. Using 1% lidocaine for local anesthesia, a 6.5-Chinese sheath was inserted in the right femoral artery. Next, left ventricular pressure was recorded using an angled pigtail catheter, followed by left ventriculography and then a pullback. Left coronary angiography was completed using a left 4.5 Cassandra catheter. Right coronary angiography was completed using a 3DRC catheter. I studied these films and elected to perform intervention. A 6-Chinese XB 4.5 guiding catheter was used to engage the left main. I then did IFR measurements on the mid-LAD with a value of 0.89. I then directly stented the mid-LAD using a 3.0 x 22 mm Josep stent at 20 atmospheres. There was a nice step up in both sides of the stent with an excellent angiographic result. Next, I tried to wire the diagonal branch. I could not get the wire to easily cross and went to a Whisper wire; this still would not cross. Using a 1.5 balloon to buttress the wire, I was able to get it across the diagonal branch with the wire. Serial dilations were performed with the 1.5 balloon and then a 2.0 balloon and then I stented the diagonal using a 2.25 x 26 mm Josep stent deployed at 14 atmospheres. The proximal end of the stent was then postdilated using a 2.25 x 20 mm NonCompliant balloon. An excellent angiographic result was achieved. I then directed the Whisper wire down the distal circumflex and across the left posterior descending artery lesion. I then direct stented this utilizing a 2.5 x 12 mm [place] at 12 atmospheres with complete resolution of that stenosis. Guiding catheter was then removed. Angiography was then obtained of the right femoral artery via the sheath, followed by uncomplicated Angio-Seal placement with good hemostasis. There were no complications. The patient tolerated the procedure well. FINDINGS: I. HEMODYNAMICS: Left ventricular pressure is 105/7 with an end-diastolic pressure of 14. Aortic pressure is 122/79 with a mean of 99. There was no gradient during pullback from the left ventricle to the aorta. II. LEFT VENTRICULOGRAPHY: Left ventriculography shows a severely globally hypokinetic left ventricle. There was 1+ mitral regurgitation at the apex. The left ventricle actually looks akinetic. Estimated ejection fraction is no greater than 15%. III. CORONARY ANGIOGRAPHY: The left main coronary artery is large and normal. It bifurcates into the LAD and circumflex vessels. The left anterior descending artery gives off 2 diagonal branches. The first diagonal branch has irregularities only. The proximal LAD has about 20% to 30% disease. The mid-LAD after the second diagonal branch has a long 70% stenosis with an IFR of 0.79. The second diagonal branch has a 99% stenosis with GILBERT grade 1 flow. The circumflex artery is dominant. This vessel has diffuse disease distally. There are two 40-50% stenoses and then the posterior descending artery branch has a focal 90-95% stenosis. IV. RESULTS OF INTERVENTION: 1. Following stenting of the mid-LAD 0% residual stenosis had been achieved with GILBERT-3 flow. 2. Following stenting of the diagonal branch a 0% stenosis had been achieved with GILBERT-3 flow. 3. Following stenting of the left posterior descending artery branch, a 0% residual stenosis had been achieved with GILBERT-3 flow. CONCLUSIONS: 1. Severe 3-vessel coronary artery disease. 2. Critically severe LV dysfunction. 3. Successful drug-eluting stent implantation of the mid-left anterior descending, the second diagonal branch and the left posterior descending artery branch. PLAN: The patient may need to be continued on aspirin and Plavix long-term. We will introduce SERGIO inhibitor and beta blockers as hemodynamics permit, will check his lipid values and add statin therapy as appropriate. MD ROBERTO Whitlock/BRITNEY , 01:32 PM , 02:09 PM
[2017-12-28 14:43] LABS: CHOLESTEROL/ HDL RATIO 3.99 RATIO; DIRECT BILIRUBIN ADULT 0.2 MG/DL (0.0-0.2); HDL CHOLESTEROL 29.3 MG/DL (40.0-60.0); INDIRECT BILIRUBIN 0.3 MG/DL (0.0-0.8); TOTAL BILIRUBIN ADULT 0.5 MG/DL (0.2-1.0); TOTAL PROTEIN 5.6 GM/DL (6.4-8.2)
--- NOTE | 2017-12-28 14:43 | HHI.PR ---
Subjective Remarks 62-year-old male with no significant past medical history last seen by a primary care physician in 1999 presents to the emergency department for the evaluation of shortness of breath and right arm pain. The patient states his shortness of breath started approximately 4-5 days ago he endorses right arm numbness and tingling with accompanying pain. He states he has chest pressure that is worse with lying down. He also states his shortness of breath is preventing him from sleeping at night because it is worse when he lies flat. Troponin elevated at 33.6. He denies any nausea/vomiting. No abdominal pain. No lateralizing signs/symptoms. 4-4 HAD CARDIAC CATH TODAY WITH DR OVALLES HAD 3VESSEL CAD AND HAD STENTS PLACED DW RN AND PT AND CASE MANAGEMENT AND FAMILY RECOMMENDED SMOKING CESSATION Objective Vitals Vital Signs Date Time Temp Pulse Resp B/P (MAP) Pulse Ox O2 Delivery O2 Flow Rate FiO2 12/28/17 11:00 73 12/28/17 10:00 70 12/28/17 09:00 78 12/28/17 08:00 78 12/28/17 07:30 98.0 56 22 117/72 (87) 98 12/28/17 07:00 70 12/28/17 06:00 78 12/28/17 05:00 79 12/28/17 04:00 79 12/28/17 03:00 78 12/28/17 03:00 97.7 67 16 112/80 (91) 98 12/28/17 02:00 76 12/28/17 01:00 82 12/28/17 00:00 79 12/27/17 23:00 78 12/27/17 23:00 97.9 68 16 106/81 (89) 98 12/27/17 22:00 86 12/27/17 21:00 90 12/27/17 21:00 98.2 80 16 137/97 (110) 100 12/27/17 19:19 98.8 99 20 162/93 (116) 100 Room Air 12/27/17 17:28 97 14 155/105 (122) 100 Room Air 12/27/17 17:28 24 100 Room Air 12/27/17 17:22 Room Air 12/27/17 16:24 97.5 98 20 169/110 (129) 99 I/O 4/3/18 4/12/1112/27/17 12/28/17 12/28/17 12/28/17 06:59 14:59 22:59 06:59 14:59 22:59 Intake Total 2.5 ml Output Total 200 ml Balance -197.5 ml Intake Oral 0 ml IV Total 2.5 ml Output Urine Total 200 ml # Bowel Movements 0 Result Diagram: 12/28/17 0200 12/28/17 0200 Other Results Laboratory Tests Test 12/27/17 17:08 12/28/17 02:00 12/28/17 10:56 White Blood Count 7.1 TH/MM3 6.9 TH/MM3 Red Blood Count 5.14 MIL/MM3 4.41 MIL/MM3 Hemoglobin 15.6 GM/DL 13.6 GM/DL Hematocrit 47.4 % 39.8 % Mean Corpuscular Volume 92.2 FL 90.2 FL Mean Corpuscular Hemoglobin 30.4 PG 30.9 PG Mean Corpuscular Hemoglobin Concent 33.0 % 34.2 % Red Cell Distribution Width 14.1 % 14.0 % Platelet Count 238 TH/MM3 214 TH/MM3 Mean Platelet Volume 9.4 FL 8.9 FL Neutrophils (%) (Auto) 64.8 % 54.9 % Lymphocytes (%) (Auto) 22.5 % 32.1 % Monocytes (%) (Auto) 8.4 % 7.7 % Eosinophils (%) (Auto) 3.4 % 4.3 % Basophils (%) (Auto) 0.9 % 1.0 % Neutrophils # (Auto) 4.6 TH/MM3 3.8 TH/MM3 Lymphocytes # (Auto) 1.6 TH/MM3 2.2 TH/MM3 Monocytes # (Auto) 0.6 TH/MM3 0.5 TH/MM3 Eosinophils # (Auto) 0.2 TH/MM3 0.3 TH/MM3 Basophils # (Auto) 0.1 TH/MM3 0.1 TH/MM3 CBC Comment DIFF FINAL DIFF FINAL Differential Comment Prothrombin Time 11.7 SEC Prothromb Time International Ratio 1.2 RATIO Activated Partial Thromboplast Time 26.7 SEC 35.3 SEC 33.0 SEC Blood Urea Nitrogen 24 MG/DL 23 MG/DL Creatinine 1.17 MG/DL 1.01 MG/DL Random Glucose 93 MG/DL 86 MG/DL Calcium Level 9.1 MG/DL 8.1 MG/DL Magnesium Level 2.1 MG/DL Sodium Level 141 MEQ/L 142 MEQ/L Potassium Level 5.1 MEQ/L 4.1 MEQ/L Chloride Level 107 MEQ/L 111 MEQ/L Carbon Dioxide Level 27.3 MEQ/L 23.8 MEQ/L Anion Gap 7 MEQ/L 7 MEQ/L Estimat Glomerular Filtration Rate 63 ML/MIN 75 ML/MIN Total Creatine Kinase 109 U/L Creatine Kinase MB 2.4 NG/ML Troponin I 33.60 NG/ML 26.20 NG/ML 22.30 NG/ML Imaging Last Impressions Chest X-Ray 12/27/17 1626 Signed Impressions: Service Date/Time: Wednesday, December 27, 2017 16:40 - CONCLUSION: No acute cardiopulmonary disease demonstrated. Chapincito Patel MD Objective Remarks GENERAL: Awake alert and oriented 3 talkative not so cooperative appears stated age SKIN: Warm and dry. HEAD: Atraumatic. Normocephalic. EYES: Pupils equal and round. No scleral icterus. No injection or drainage. Extraocular muscles intact ENT: No nasal bleeding or discharge. Mucous membranes pink and moist. Tongue is midline NECK: Trachea midline. No JVD. Supple CARDIOVASCULAR: Regular rate and rhythm. S1-S2 no S3 or S4 no heave or thrill or rub or gallop RESPIRATORY: No accessory muscle use. Clear to auscultation. Breath sounds equal bilaterally. GASTROINTESTINAL: Abdomen soft, non-tender, nondistended. Hepatic and splenic margins not palpable. MUSCULOSKELETAL: Extremities without clubbing, cyanosis, or edema. No obvious deformities. RIGHT GROIN IS STABLE NEUROLOGICAL: Awake and alert. No obvious cranial nerve deficits. Motor grossly within normal limits. Five out of 5 muscle strength in the arms and legs. Normal speech. PSYCHIATRIC: INAppropriate mood and affect; insight and judgment ABnormal/ limited. Procedures 1. Left heart catheterization, left ventriculography, coronary angiography. 2. Primary stenting of the mid-left anterior descending artery. 3. Balloon angioplasty and stenting of the second diagonal branch of the left anterior descending artery. 4. Direct stenting of the left posterior descending artery branch. 5. Right femoral artery angiography with Angio-Seal placement. DESCRIPTION OF PROCEDURE: The patient was brought to the cardiac catheterization lab under urgent conditions. The right groin was prepped and draped in sterile fashion. Using 1% lidocaine for local anesthesia, a 6.5-[place]izen [place] sheath was inserted in the right femoral artery. Next, left ventricular pressure was recorded using an angled pigtail catheter, followed by left ventriculography and then a pullback. Left coronary angiography was completed using a left 4.5 Cassandra catheter. Right coronary angiography was completed using a 3DRC catheter. I studied these films and elected to perform intervention. A 6-Citizen [place] XB 4.5 guiding catheter was used to engage the left main. I then did IFR measurements on the mid-LAD with a value of 0.89. I then directly stented the mid-LAD using a 3.0 x 22 mm Josep stent at 20 atmospheres. There was a nice step up in both sides of the stent with an excellent angiographic result. Next, I tried to wire the diagonal branch. I could not get the wire to easily cross and went to a Whisper wire; this still would not cross. Using a 1.5 balloon to buttress the wire, I was able to get it across the diagonal branch with the wire. Serial dilations were performed with the 1.5 balloon and then a 2.0 balloon and then I stented the diagonal using a 2.25 x 26 mm [place] stent deployed at 14 atmospheres. The proximal end of the stent was then postdilated using a 2.25 x 20 mm NonCompliant balloon. An excellent angiographic result was achieved. I then directed the Whisper wire down the distal circumflex and across the left posterior descending artery lesion. I then direct stented this utilizing a 2.5 x 12 mm [place] at 12 atmospheres with complete resolution of that stenosis. Guiding catheter was then removed. Angiography was then obtained of the right femoral artery via the sheath, followed by uncomplicated Angio-Seal placement with good hemostasis. There were no complications. The patient tolerated the procedure well. FINDINGS: I. HEMODYNAMICS: Left ventricular pressure is 105/7 with an end-diastolic pressure of 14. Aortic pressure is 122/79 with a mean of 99. There was no gradient during pullback from the left ventricle to the aorta. II. LEFT VENTRICULOGRAPHY: Left ventriculography shows a severely globally hypokinetic left ventricle. There was 1+ mitral regurgitation at the apex. The left ventricle actually looks akinetic. Estimated ejection fraction is no greater than 15%. III. CORONARY ANGIOGRAPHY: The left main coronary artery is large and normal. It bifurcates into the LAD and circumflex vessels. The left anterior descending artery gives off 2 diagonal branches. The first diagonal branch has irregularities only. The proximal LAD has about 20% to 30% disease. The mid-LAD after the second diagonal branch has a long 70% stenosis with an IFR of 0.79. The second diagonal branch has a 99% stenosis with GILBERT grade 1 flow. The circumflex artery is dominant. This vessel has diffuse disease distally. There are two 40-50% stenoses and then the posterior descending artery branch has a focal 90-95% stenosis. IV. RESULTS OF INTERVENTION: 1. Following stenting of the mid-LAD 0% residual stenosis had been achieved with GILBERT-3 flow. 2. Following stenting of the diagonal branch a 0% stenosis had been achieved with GILBERT-3 flow. 3. Following stenting of the left posterior descending artery branch, a 0% residual stenosis had been achieved with GILBERT-3 flow. CONCLUSIONS: 1. Severe 3-vessel coronary artery disease. 2. Critically severe LV dysfunction. 3. Successful drug-eluting stent implantation of the mid-left anterior descending, the second diagonal branch and the left posterior descending artery branch. PLAN: The patient may need to be continued on aspirin and Plavix long-term. We will introduce SERGIO inhibitor and beta blockers as hemodynamics permit, will check his lipid values and add statin therapy as appropriate. Alec Ovalles MD Medications and IVs Current Medications Aspirin (Aspirin) 325 mg ONCE ONCE PO Last administered on 12/27/17at 17:38; Start 12/27/17 at 17:45; Stop 12/27/17 at 17:46; Status DC Sodium Chloride (NS Flush) 2 ml UNSCH PRN IV FLUSH FLUSH AFTER USING IV ACCESS ; Start 12/27/17 at 18:45 Sodium Chloride (NS Flush) 2 ml BID IV FLUSH Last administered on 12/28/17at 08: 59; Start 12/27/17 at 21:00 Naloxone HCl (Narcan Inj) 0.4 mg UNSCH PRN IV PUSH SEE LABEL COMMENTS; Start at 18:45 Aspirin (Ecotrin Ec) 325 mg DAILY PO Last administered on 12/28/17at 09:00; Start 12/28/17 at 09:00 Carvedilol (Coreg) 12.5 mg Q12HR PO Last administered on 12/28/17at 09:00; Start 12/27/17 at 21:00 Heparin Sodium (Porcine) (Heparin Inj) 4,000 units ONCE ONCE IV Last administered on 12/27/17at 19:16; Start 12/27/17 at 19:00; Stop 12/27/17 at 19:01; Status DC Heparin Sodium (Porcine) (Heparin Inj) 5,000 units UNSCH PRN IV APTT LESS THAN 25; Start 12/28/17 at 01:00 Heparin Sodium (Porcine) (Heparin Inj) 2,500 units UNSCH PRN IV APTT 25 TO 39 Last administered on 12/28/17at 02:46; Start 12/28/17 at 01:00 Heparin Sodium/ Dextrose 250 ml @ 8 mls/hr TITRATE PRN IV Coagulation Management Last administered on 12/27/17at 19:16; Start 12/27/17 at 19:00 Sodium Chloride 1,000 ml @ 100 mls/hr Q10H IV Last administered on 12/28/17at 06 :52; Start 12/27/17 at 20:00 Morphine Sulfate (Morphine Inj) 2 mg Q3H PRN IV PUSH pain 6-10; Start 12/27/17 at 20:00 Pneumococcal Polyvalent Vaccine (Pneumovax-23 Inj) 25 mcg ONCE ONCE IM ; Start 12/29/17 at 10:00; Stop 12/29/17 at 10:01 Influenza Virus Vaccine (Flu (Quadrivalent) Vaccine Inj) 0.5 ml ONCE ONCE IM ; Start 12/29/17 at 10:00; Stop 12/29/17 at 10:01 Nitroglycerin (Nitroglycerin 2% Oint) 1 inch Q6HR TOPICAL Last administered on 12/28/17at 06:54; Start 12/28/17 at 06:45 Heparin Sodium/ Sodium Chloride 2,000 ml @ As Directed STK-MED ONCE IV FLUSH ; Start 12/28/17 at 11:17; Stop 12/28/17 at 11:18; Status DC Midazolam HCl (Versed Inj) 2 mg STK-MED ONCE .ROUTE ; Start 12/28/17 at 11:28; Stop 12/28/17 at 11:29; Status DC Bivalirudin (Angiomax Inj) 250 mg STK-MED ONCE .ROUTE ; Start 12/28/17 at 12:11; Stop 12/28/17 at 12:12; Status DC Sterile Water (Sterile Water For Injection) 10 ml STK-MED ONCE .ROUTE ; Start at 12:11; Stop 12/28/17 at 12:12; Status DC Nitroglycerin 5 ml @ As Directed STK-MED ONCE .ROUTE ; Start 12/28/17 at 12:28; Stop 12/28/17 at 12:29; Status DC Clopidogrel Bisulfate (Plavix) 600 mg STK-MED ONCE .ROUTE ; Start 12/28/17 at 13: 17; Stop 12/28/17 at 13:18; Status DC Sodium Chloride 1,000 ml @ 100 mls/hr Q10H IV ; Start 12/28/17 at 13:33; Stop at 21:32; Status UNV Sodium Chloride (NS Flush) 2 ml UNSCH PRN IV FLUSH FLUSH AFTER USING IV ACCESS ; Start 12/28/17 at 13:45; Status UNV Sodium Chloride (NS Flush) 2 ml BID IV FLUSH ; Start 12/28/17 at 21:00; Status UNV Oxycodone/ Acetaminophen (Percocet 5-325 Mg) 1 tab Q4H PRN PO PAIN SCALE 3 TO 10; Start 12/28/17 at 13:45; Status UNV Aspirin (Aspirin Chew) 81 mg DAILY PO ; Start 12/29/17 at 09:00; Status UNV Clopidogrel Bisulfate (Plavix) 75 mg DAILY PO ; Start 12/29/17 at 09:00; Status UNV Bivalirudin 250 mg/Sodium Chloride 50 ml @ 0 mls/hr Q0M IV ; Start 12/28/17 at 13 :33; Stop 12/28/17 at 17:32; Status UNV Miscellaneous Information 1 ONCE ONCE XX ; Start 12/28/17 at 13:45; Stop at 13:46; Status UNV Ondansetron HCl (Zofran Inj) 4 mg Q4H PRN IV PUSH NAUSEA; Start 12/28/17 at 13: 45; Status UNV Bacitracin (Bacitracin Oint Packet) 0.9 gm ONCE ONCE TOP ; Start 4/4/18 at 13: 45; Stop 12/28/17 at 13:46; Status UNV Carvedilol (Coreg) 3.125 mg BID PO ; Start 12/28/17 at 21:00; Status UNV Lisinopril (Prinivil) 5 mg DAILY PO ; Start 12/29/17 at 09:00; Status UNV Atorvastatin Calcium (Lipitor) 40 mg DAILY PO ; Start 12/29/17 at 09:00; Status UNV Iohexol (OMNIPAQUE 350 INJ (Die Hardener)) 100 ml STK-MED ONCE OTHER ; Start at 14:09; Stop 12/28/17 at 14:10; Status DC Iohexol (OMNIPAQUE 350 INJ (Die Hardener)) 50 ml STK-MED ONCE OTHER ; Start 12/28/17 at 14:09; Stop 12/28/17 at 14:10; Status DC A/P Assessment and Plan Assessment/plan: 1. NSTEMI Initial troponin 33.6 EKG shows NSR with PVCs; no ST segment elevation or depression, personally reviewed Cardiology consulted, appreciate assistance Heparin bolus and drip Nothing by mouth Morphine for pain Aspirin Coreg MV CAD 3 VESSELS STENTED 4-4 2. Hypertension As above OSTEOARTHRITIS PAIN CONTROL NEEDED CHECK TSH, FREE T4 HGBA1C, LIPIDS FEN NPO NS at 100 cc/hr Electrolytes: Monitor and replete when necessary Heparin ggt Case management consulted to assist with outpatient follow-up Discharge Planning Next 24-48 hours if stable blood pressure stable chest Vinod Foster DO Dec 28, 2017 14:43
[2017-12-28] MEDS ORDERED: MORPHINE SULFATE 2 MG/ML SYRINGE IV PUSH PRN ×3 (14:45)
[2017-12-28] MEDS ORDERED: NALOXONE HCL 0.4 MG/ML AMP IV PUSH PRN (14:45)
[2017-12-28] MEDS: oxyCODONE/ACETAMINOPHEN 10 MG/325 MG TAB PO PRN (21:29)
[2017-12-28] MEDS: CARVEDILOL 3.125 MG TAB PO SCH (21:30)
[2017-12-29] VITALS (28 sets, daily range): BP systolic 104–138; BP diastolic 77–105; PULSE 42–138; RESP 18; TEMP 96.9–98.5; O2SAT 94–100
[2017-12-29] MEDS: NITROGLYCERIN 2% OINT 1 GM PACKET TOPICAL SCH ×5 (00:52→23:46)
[2017-12-29] MEDS: SODIUM CHLOR 0.9% 1000 ML INJ 1,000 ML IV SCH ×3 (02:00→22:00)
[2017-12-29 07:11] LABS: AUTOMATED NEUTROPHIL # 6.5 TH/MM3 (1.8-7.7); BASOPHIL # 0.1 TH/MM3 (0-0.2); BASOPHIL % 0.8 % (0.0-2.0); EOSINOPHIL # 0.2 TH/MM3 (0-0.4); EOSINOPHIL % 2.4 % (0.0-4.0); HEMOGLOBIN 14.2 GM/DL (13.0-17.0); LYMPH % 15.5 % (9.0-44.0); LYMPHOCYTE # 1.4 TH/MM3 (1.0-4.8); MEAN PLATELET VOLUME 9.5 FL (7.0-11.0); MONO % 8.1 % (0.0-8.0); MONOCYTE # 0.7 TH/MM3 (0-0.9); NEUT % 73.2 % (16.0-70.0); PLATELET COUNT 223 TH/MM3 (150-450); RED BLOOD COUNT 4.73 MIL/MM3 (4.50-5.90); RED CELL DISTRIBUTION WIDTH 14.4 % (11.6-17.2); WHITE BLOOD COUNT 8.9 TH/MM3 (4.0-11.0)
[2017-12-29 07:16] LABS: AST (GOT) 23 U/L (15-37); BICARBONATE 24.8 MEQ/L (21.0-32.0); BLOOD UREA NITROGEN 24 MG/DL (7-18); CALCIUM 8.5 MG/DL (8.5-10.1); CHLORIDE 108 MEQ/L (98-107); GLOMERULAR FILTRATION RATE 61 ML/MIN (>89); GLUCOSE,RANDOM 92 MG/DL (74-106); MAGNESIUM 2.1 MG/DL (1.5-2.5); SODIUM (NA) 141 MEQ/L (136-145)
[2017-12-29 07:17] LABS: ALT (GPT) 41 U/L (12-78); CHOLESTEROL 134 MG/DL (120-200); TRIGLYCERIDES 77 MG/DL (42-150)
[2017-12-29 07:26] LABS: ALKALINE PHOSPHATASE 81 U/L (45-117); CHOLESTEROL/ HDL RATIO 4.63 RATIO; FREE T4 1.06 NG/DL (0.76-1.46); HDL CHOLESTEROL 28.9 MG/DL (40.0-60.0); LDL CHOLESTEROL 90 MG/DL (0-99); PHOSPHORUS 2.7 MG/DL (2.5-4.9); TOTAL BILIRUBIN ADULT 0.4 MG/DL (0.2-1.0)
[2017-12-29] MEDS: ATORVASTATIN 40 MG TAB PO SCH (08:30)
[2017-12-29] MEDS: CARVEDILOL 3.125 MG TAB PO SCH ×3 (08:31→20:43)
[2017-12-29] MEDS: CLOPIDOGREL 75 MG TAB PO SCH (08:31)
[2017-12-29] MEDS: ASPIRIN 81 MG CHEW TAB PO SCH (08:31)
[2017-12-29] MEDS: SODIUM CHLORIDE 0.9% FLUSH 10 ML FLUSH IV FLUSH SCH ×2 (08:31→20:43)
[2017-12-29] MEDS ORDERED: LISINOPRIL 5 MG TAB PO SCH (09:00)
[2017-12-29] MEDS ORDERED: INFLUENZA VIRUS VACCINE (QUADRIVALENT) 0.5 ML SYR IM ONE (10:00)
[2017-12-29] MEDS ORDERED: PNEUMOCOCCAL POLYVALENT INJ 25 MCG/0.5 ML SYR IM ONE (10:00)
[2017-12-29] MEDS: FUROSEMIDE 40 MG/4 ML VIAL IV PUSH SCH ×2 (10:23→19:41)
[2017-12-29] MEDS: POTASSIUM CHLORIDE 20 MEQ CONTROLLED RELEASE TAB PO SCH ×2 (10:23→20:42)
[2017-12-29] MEDS: LISINOPRIL 10 MG TAB PO SCH (10:24)
--- NOTE | 2017-12-29 12:26 | HHI.PR ---
Subjective Remarks 62-year-old male with no significant past medical history last seen by a primary care physician in 1999 presents to the emergency department for the evaluation of shortness of breath and right arm pain. The patient states his shortness of breath started approximately 4-5 days ago he endorses right arm numbness and tingling with accompanying pain. He states he has chest pressure that is worse with lying down. He also states his shortness of breath is preventing him from sleeping at night because it is worse when he lies flat. Troponin elevated at 33.6. He denies any nausea/vomiting. No abdominal pain. No lateralizing signs/symptoms. 4-4 HAD CARDIAC CATH TODAY WITH DR OVALLES HAD 3VESSEL CAD AND HAD STENTS PLACED DW RN AND PT AND CASE MANAGEMENT AND FAMILY RECOMMENDED SMOKING CESSATION 4-5 NOT CLEARED BY CARDIOLOGY MEDICATIONS ADJUSTED DW RN AND PT AND AM LABS MEDS PER CARDIO Objective Vitals Vital Signs Date Time Temp Pulse Resp B/P (MAP) Pulse Ox O2 Delivery O2 Flow Rate FiO2 12/29/17 11:15 97.6 93 18 115/85 (95) 95 12/29/17 08:30 97.5 84 18 138/102 (114) 100 12/29/17 06:00 80 12/29/17 05:00 78 12/29/17 04:00 132 12/29/17 04:00 97.0 76 18 130/102 (111) 99 12/29/17 03:00 82 12/29/17 02:00 42 12/29/17 01:00 76 12/29/17 00:00 96.9 74 18 130/89 (103) 94 12/29/17 00:00 80 12/28/17 23:00 78 12/28/17 22:00 82 12/28/17 21:00 80 12/28/17 20:00 97.9 67 18 117/85 (96) 97 12/28/17 20:00 67 12/28/17 20:00 82 12/28/17 18:00 76 12/28/17 17:00 77 12/28/17 16:42 65 12/28/17 15:30 97.5 68 18 131/93 (106) 98 12/28/17 13:45 75 18 129/87 (101) 99 I/O 12/28/17 12/28/17 12/28/17 12/29/175/18 4/5/18 07:00 15:00 23:00 07:00 15:00 23:00 Intake Total 2.5 ml 480 ml 1389 ml Output Total 200 ml 550 ml Balance -197.5 ml -70 ml 1389 ml Intake Oral 0 ml 480 ml 400 ml IV Total 2.5 ml 989 ml Output Urine Total 200 ml 550 ml # Voids 3 # Bowel Movements 0 Result Diagram: 12/29/17 0445 12/29/17 0454 Other Results Laboratory Tests Test 12/27/17 17:08 12/28/17 02:00 12/28/17 10:56 12/29/17 04:45 White Blood Count 7.1 TH/MM3 6.9 TH/MM3 8.9 TH/MM3 Red Blood Count 5.14 MIL/MM3 4.41 MIL/MM3 4.73 MIL/MM3 Hemoglobin 15.6 GM/DL 13.6 GM/DL 14.2 GM/DL Hematocrit 47.4 % 39.8 % 43.0 % Mean Corpuscular Volume 92.2 FL 90.2 FL 91.0 FL Mean Corpuscular Hemoglobin 30.4 PG 30.9 PG 30.0 PG Mean Corpuscular Hemoglobin Concent 33.0 % 34.2 % 33.0 % Red Cell Distribution Width 14.1 % 14.0 % 14.4 % Platelet Count 238 TH/MM3 214 TH/MM3 223 TH/MM3 Mean Platelet Volume 9.4 FL 8.9 FL 9.5 FL Neutrophils (%) (Auto) 64.8 % 54.9 % 73.2 % Lymphocytes (%) (Auto) 22.5 % 32.1 % 15.5 % Monocytes (%) (Auto) 8.4 % 7.7 % 8.1 % Eosinophils (%) (Auto) 3.4 % 4.3 % 2.4 % Basophils (%) (Auto) 0.9 % 1.0 % 0.8 % Neutrophils # (Auto) 4.6 TH/MM3 3.8 TH/MM3 6.5 TH/MM3 Lymphocytes # (Auto) 1.6 TH/MM3 2.2 TH/MM3 1.4 TH/MM3 Monocytes # (Auto) 0.6 TH/MM3 0.5 TH/MM3 0.7 TH/MM3 Eosinophils # (Auto) 0.2 TH/MM3 0.3 TH/MM3 0.2 TH/MM3 Basophils # (Auto) 0.1 TH/MM3 0.1 TH/MM3 0.1 TH/MM3 CBC Comment DIFF FINAL DIFF FINAL DIFF FINAL Differential Comment Prothrombin Time 11.7 SEC Prothromb Time International Ratio 1.2 RATIO Activated Partial Thromboplast Time 26.7 SEC 35.3 SEC 33.0 SEC Blood Urea Nitrogen 24 MG/DL 23 MG/DL Creatinine 1.17 MG/DL 1.01 MG/DL Random Glucose 93 MG/DL 86 MG/DL Calcium Level 9.1 MG/DL 8.1 MG/DL Magnesium Level 2.1 MG/DL Sodium Level 141 MEQ/L 142 MEQ/L Potassium Level 5.1 MEQ/L 4.1 MEQ/L Chloride Level 107 MEQ/L 111 MEQ/L Carbon Dioxide Level 27.3 MEQ/L 23.8 MEQ/L Anion Gap 7 MEQ/L 7 MEQ/L Estimat Glomerular Filtration Rate 63 ML/MIN 75 ML/MIN Total Creatine Kinase 109 U/L Creatine Kinase MB 2.4 NG/ML Troponin I 33.60 NG/ML 26.20 NG/ML 22.30 NG/ML Total Bilirubin 0.5 MG/DL Direct Bilirubin 0.2 MG/DL Indirect Bilirubin 0.3 MG/DL Aspartate Amino Transf (AST/SGOT) 28 U/L Alanine Aminotransferase (ALT/SGPT) 49 U/L Alkaline Phosphatase 73 U/L Total Protein 5.6 GM/DL Albumin 3.0 GM/DL Triglycerides Level 68 MG/DL Cholesterol Level 117 MG/DL LDL Cholesterol 74 MG/DL HDL Cholesterol 29.3 MG/DL Cholesterol/HDL Ratio 3.99 RATIO Test 12/29/17 04:54 Blood Urea Nitrogen 24 MG/DL Creatinine 1.20 MG/DL Random Glucose 92 MG/DL Total Protein 6.0 GM/DL Albumin 3.0 GM/DL Calcium Level 8.5 MG/DL Phosphorus Level 2.7 MG/DL Magnesium Level 2.1 MG/DL Alkaline Phosphatase 81 U/L Aspartate Amino Transf (AST/SGOT) 23 U/L Alanine Aminotransferase (ALT/SGPT) 41 U/L Total Bilirubin 0.4 MG/DL Sodium Level 141 MEQ/L Potassium Level 4.6 MEQ/L Chloride Level 108 MEQ/L Carbon Dioxide Level 24.8 MEQ/L Anion Gap 8 MEQ/L Estimat Glomerular Filtration Rate 61 ML/MIN Total Creatine Kinase 117 U/L Triglycerides Level 77 MG/DL Cholesterol Level 134 MG/DL LDL Cholesterol 90 MG/DL HDL Cholesterol 28.9 MG/DL Cholesterol/HDL Ratio 4.63 RATIO Free Thyroxine 1.06 NG/DL Thyroid Stimulating Hormone 3rd Gen 1.300 uIU/ML Imaging Last Impressions Chest X-Ray 12/27/17 1626 Signed Impressions: Service Date/Time: Wednesday, December 27, 2017 16:40 - CONCLUSION: No acute cardiopulmonary disease demonstrated. Chapincito Patel MD Objective Remarks GENERAL: Awake alert and oriented 3 talkative not so cooperative appears stated age SKIN: Warm and dry. HEAD: Atraumatic. Normocephalic. EYES: Pupils equal and round. No scleral icterus. No injection or drainage. Extraocular muscles intact ENT: No nasal bleeding or discharge. Mucous membranes pink and moist. Tongue is midline NECK: Trachea midline. No JVD. Supple CARDIOVASCULAR: Regular rate and rhythm. S1-S2 no S3 or S4 no heave or thrill or rub or gallop RESPIRATORY: No accessory muscle use. Clear to auscultation. Breath sounds equal bilaterally. GASTROINTESTINAL: Abdomen soft, non-tender, nondistended. Hepatic and splenic margins not palpable. MUSCULOSKELETAL: Extremities without clubbing, cyanosis, or edema. No obvious deformities. RIGHT GROIN IS STABLE NEUROLOGICAL: Awake and alert. No obvious cranial nerve deficits. Motor grossly within normal limits. Five out of 5 muscle strength in the arms and legs. Normal speech. PSYCHIATRIC: INAppropriate mood and affect; insight and judgment ABnormal/ limited. Procedures 1. Left heart catheterization, left ventriculography, coronary angiography. 2. Primary stenting of the mid-left anterior descending artery. 3. Balloon angioplasty and stenting of the second diagonal branch of the left anterior descending artery. 4. Direct stenting of the left posterior descending artery branch. 5. Right femoral artery angiography with Angio-Seal placement. DESCRIPTION OF PROCEDURE: The patient was brought to the cardiac catheterization lab under urgent conditions. The right groin was prepped and draped in sterile fashion. Using 1% lidocaine for local anesthesia, a 6.5-Burkinan sheath was inserted in the right femoral artery. Next, left ventricular pressure was recorded using an angled pigtail catheter, followed by left ventriculography and then a pullback. Left coronary angiography was completed using a left 4.5 Cassandra catheter. Right coronary angiography was completed using a 3DRC catheter. I studied these films and elected to perform intervention. A 6-Burkinan XB 4.5 guiding catheter was used to engage the left main. I then did IFR measurements on the mid-LAD with a value of 0.89. I then directly stented the mid-LAD using a 3.0 x 22 mm Josep stent at 20 atmospheres. There was a nice step up in both sides of the stent with an excellent angiographic result. Next, I tried to wire the diagonal branch. I could not get the wire to easily cross and went to a Whisper wire; this still would not cross. Using a 1.5 balloon to buttress the wire, I was able to get it across the diagonal branch with the wire. Serial dilations were performed with the 1.5 balloon and then a 2.0 balloon and then I stented the diagonal using a 2.25 x 26 mm Josep stent deployed at 14 atmospheres. The proximal end of the stent was then postdilated using a 2.25 x 20 mm NonCompliant balloon. An excellent angiographic result was achieved. I then directed the Whisper wire down the distal circumflex and across the left posterior descending artery lesion. I then direct stented this utilizing a 2.5 x 12 mm Josep at 12 atmospheres with complete resolution of that stenosis. Guiding catheter was then removed. Angiography was then obtained of the right femoral artery via the sheath, followed by uncomplicated Angio-Seal placement with good hemostasis. There were no complications. The patient tolerated the procedure well. FINDINGS: I. HEMODYNAMICS: Left ventricular pressure is 105/7 with an end-diastolic pressure of 14. Aortic pressure is 122/79 with a mean of 99. There was no gradient during pullback from the left ventricle to the aorta. II. LEFT VENTRICULOGRAPHY: Left ventriculography shows a severely globally hypokinetic left ventricle. There was 1+ mitral regurgitation at the apex. The left ventricle actually looks akinetic. Estimated ejection fraction is no greater than 15%. III. CORONARY ANGIOGRAPHY: The left main coronary artery is large and normal. It bifurcates into the LAD and circumflex vessels. The left anterior descending artery gives off 2 diagonal branches. The first diagonal branch has irregularities only. The proximal LAD has about 20% to 30% disease. The mid-LAD after the second diagonal branch has a long 70% stenosis with an IFR of 0.79. The second diagonal branch has a 99% stenosis with GILBERT grade 1 flow. The circumflex artery is dominant. This vessel has diffuse disease distally. There are two 40-50% stenoses and then the posterior descending artery branch has a focal 90-95% stenosis. IV. RESULTS OF INTERVENTION: 1. Following stenting of the mid-LAD 0% residual stenosis had been achieved with GILBERT-3 flow. 2. Following stenting of the diagonal branch a 0% stenosis had been achieved with GILBERT-3 flow. 3. Following stenting of the left posterior descending artery branch, a 0% residual stenosis had been achieved with GILBERT-3 flow. CONCLUSIONS: 1. Severe 3-vessel coronary artery disease. 2. Critically severe LV dysfunction. 3. Successful drug-eluting stent implantation of the mid-left anterior descending, the second diagonal branch and the left posterior descending artery branch. PLAN: The patient may need to be continued on aspirin and Plavix long-term. We will introduce SERGIO inhibitor and beta blockers as hemodynamics permit, will check his lipid values and add statin therapy as appropriate. Alec Ovalles MD Medications and IVs Current Medications Aspirin (Aspirin) 325 mg ONCE ONCE PO Last administered on 12/27/17at 17:38; Start 12/27/17 at 17:45; Stop 12/27/17 at 17:46; Status DC Sodium Chloride (NS Flush) 2 ml UNSCH PRN IV FLUSH FLUSH AFTER USING IV ACCESS ; Start 12/27/17 at 18:45; Stop 12/28/17 at 17:36; Status DC Sodium Chloride (NS Flush) 2 ml BID IV FLUSH Last administered on 12/28/17at 08: 59; Start 12/27/17 at 21:00; Stop 12/28/17 at 17:36; Status DC Naloxone HCl (Narcan Inj) 0.4 mg UNSCH PRN IV PUSH SEE LABEL COMMENTS; Start at 18:45; Stop 12/28/17 at 17:37; Status DC Aspirin (Ecotrin Ec) 325 mg DAILY PO Last administered on 12/28/17at 09:00; Start 12/28/17 at 09:00; Stop 12/28/17 at 17:31; Status DC Carvedilol (Coreg) 12.5 mg Q12HR PO Last administered on 12/28/17 09:00; Start 12/27/17 at 21:00; Stop 12/28/17 at 17:34; Status DC Heparin Sodium (Porcine) (Heparin Inj) 4,000 units ONCE ONCE IV Last administered on 12/27/17 19:16; Start 12/27/17 at 19:00; Stop 12/27/17 at 19:01; Status DC Heparin Sodium (Porcine) (Heparin Inj) 5,000 units UNSCH PRN IV APTT LESS THAN 25; Start 12/28/17 at 01:00; Stop 12/28/17 at 17:30; Status DC Heparin Sodium (Porcine) (Heparin Inj) 2,500 units UNSCH PRN IV APTT 25 TO 39 Last administered on 12/28/17at 02:46; Start 12/28/17 at 01:00; Stop 12/28/17 at 17: 30; Status DC Heparin Sodium/ Dextrose 250 ml @ 8 mls/hr TITRATE PRN IV Coagulation Management Last administered on 12/27/17 19:16; Start 12/27/17 at 19:00; Stop 12/28/17 at 17:30; Status DC Sodium Chloride 1,000 ml @ 100 mls/hr Q10H IV Last administered on 12/29/17 02 :00; Start 12/27/17 at 20:00 Morphine Sulfate (Morphine Inj) 2 mg Q3H PRN IV PUSH pain 6-10; Start 12/27/17 at 20:00; Stop 12/28/17 at 14:47; Status DC Pneumococcal Polyvalent Vaccine (Pneumovax-23 Inj) 25 mcg ONCE ONCE IM Last administered on 12/29/17 10:25; Start 12/29/17 at 10:00; Stop 12/29/17 at 10:01; Status DC Influenza Virus Vaccine (Flu (Quadrivalent) Vaccine Inj) 0.5 ml ONCE ONCE IM Last administered on 12/29/17 10:27; Start 12/29/17 at 10:00; Stop 12/29/17 at 10: 01; Status DC Nitroglycerin (Nitroglycerin 2% Oint) 1 inch Q6HR TOPICAL Last administered on 12/29/17at 06:10; Start 12/28/17 at 06:45 Heparin Sodium/ Sodium Chloride 2,000 ml @ As Directed STK-MED ONCE IV FLUSH Last administered on 12/28/17 11:17; Start 12/28/17 at 11:17; Stop 12/28/17 at 11: 18; Status DC Midazolam HCl (Versed Inj) 2 mg STK-MED ONCE .ROUTE Last administered on 11:46; Start 12/28/17 at 11:28; Stop 12/28/17 at 11:29; Status DC Bivalirudin (Angiomax Inj) 250 mg STK-MED ONCE .ROUTE Last administered on 12:20; Start 12/28/17 at 12:11; Stop 12/28/17 at 12:12; Status DC Sterile Water (Sterile Water For Injection) 10 ml STK-MED ONCE .ROUTE Last administered on 12/28/17 12:20; Start 12/28/17 at 12:11; Stop 12/28/17 at 12:12; Status DC Nitroglycerin 5 ml @ As Directed STK-MED ONCE .ROUTE Last administered on 12:27; Start 12/28/17 at 12:28; Stop 12/28/17 at 12:29; Status DC Clopidogrel Bisulfate (Plavix) 600 mg STK-MED ONCE .ROUTE Last administered on 12/28/17 13:30; Start 12/28/17 at 13:17; Stop 12/28/17 at 13:18; Status DC Sodium Chloride 1,000 ml @ 100 mls/hr Q10H IV Last administered on 12/28/17 13 :33; Start 12/28/17 at 13:33; Stop 12/28/17 at 21:32; Status DC Sodium Chloride (NS Flush) 2 ml UNSCH PRN IV FLUSH FLUSH AFTER USING IV ACCESS ; Start 12/28/17 at 13:45 Sodium Chloride (NS Flush) 2 ml BID IV FLUSH Last administered on 12/29/17 08: 31; Start 12/28/17 at 21:00 Oxycodone/ Acetaminophen (Percocet 5-325 Mg) 1 tab Q4H PRN PO PAIN SCALE 3 TO 10; Start 12/28/17 at 13:45; Stop 12/28/17 at 14:47; Status DC Aspirin (Aspirin Chew) 81 mg DAILY PO Last administered on 12/29/17at 08:31; Start 12/29/17 at 09:00 Clopidogrel Bisulfate (Plavix) 75 mg DAILY PO Last administered on 12/29/17at 08: 31; Start 12/29/17 at 09:00 Bivalirudin 250 mg/Sodium Chloride 50 ml @ 0 mls/hr Q0M IV ; Start 12/28/17 at 13 :33; Stop 12/28/17 at 17:40; Status DC Miscellaneous Information 1 ONCE ONCE XX ; Start 12/28/17 at 13:45; Stop at 17:35; Status DC Ondansetron HCl (Zofran Inj) 4 mg Q4H PRN IV PUSH NAUSEA; Start 12/28/17 at 13: 45 Bacitracin (Bacitracin Oint Packet) 0.9 gm ONCE ONCE TOP ; Start 12/28/17 at 13: 45; Stop 12/28/17 at 17:31; Status DC Carvedilol (Coreg) 3.125 mg BID PO Last administered on 12/29/17at 08:31; Start 12/28/17 at 21:00; Stop 12/29/17 at 08:56; Status DC Lisinopril (Prinivil) 5 mg DAILY PO Last administered on 12/29/17at 08:31; Start 12/29/17 at 09:00; Stop 12/29/17 at 09:00; Status DC Atorvastatin Calcium (Lipitor) 40 mg DAILY PO Last administered on 12/29/17at 08: 30; Start 12/29/17 at 09:00 Iohexol (OMNIPAQUE 350 INJ (Aboriginal Education Worker Coordinator)) 100 ml STK-MED ONCE OTHER ; Start at 14:09; Stop 12/28/17 at 14:10; Status DC Iohexol (OMNIPAQUE 350 INJ (Aboriginal Education Worker Coordinator)) 50 ml STK-MED ONCE OTHER ; Start 12/28/17 at 14:09; Stop 12/28/17 at 14:10; Status DC Oxycodone/ Acetaminophen (Percocet 5-325 Mg) 1 tab Q6H PRN PO PAIN SCALE 3 TO 5; Start 12/28/17 at 14:45 Oxycodone/ Acetaminophen (Percocet 10-325 Mg) 1 tab Q6H PRN PO PAIN SCALE 6 TO 10 Last administered on 12/28/17 21:29; Start 12/28/17 at 14:45 Morphine Sulfate (Morphine Inj) 2 mg Q3H PRN IV PUSH Pain 3-5; if unable to take PO Last administered on 12/28/17at 15:30; Start 12/28/17 at 14:45 Morphine Sulfate (Morphine Inj) 4 mg Q3H PRN IV PUSH Pain 6-10;if unable to take PO; Start 12/28/17 at 14:45 Morphine Sulfate (Morphine Inj) 4 mg Q3H PRN IV PUSH BREAKTHROUGH PAIN; Start 12/28/17 at 14:45 Naloxone HCl (Narcan Inj) 0.4 mg UNSCH PRN IV PUSH SEE LABEL COMMENTS; Start at 14:45 Furosemide (Lasix Inj) 40 mg BID@09,18 IV PUSH Last administered on 12/29/17 10 :23; Start 12/29/17 at 09:00 Potassium Chloride (KCl) 20 meq Q12HR PO Last administered on 12/29/17 10:23; Start 12/29/17 at 09:00 Carvedilol (Coreg) 6.25 mg BID PO Last administered on 12/29/17 10:24; Start at 09:00 Lisinopril (Prinivil) 10 mg DAILY PO Last administered on 12/29/17 10:24; Start 12/29/17 at 09:00 A/P Assessment and Plan Assessment/plan: 1. NSTEMI Initial troponin 33.6 EKG shows NSR with PVCs; no ST segment elevation or depression, personally reviewed Cardiology consulted, appreciate assistance Heparin bolus and drip Nothing by mouth Morphine for pain Aspirin Coreg MV CAD 3 VESSELS STENTED 4-4 2. Hypertension As above OSTEOARTHRITIS PAIN CONTROL NEEDED CHECK TSH, FREE T4 HGBA1C, LIPIDS FEN NPO NS at 100 cc/hr Electrolytes: Monitor and replete when necessary Heparin ggt Case management consulted to assist with outpatient follow-up Discharge Planning Next 24-48 hours if stable blood pressure stable chest MEDS ADJUSTED BY CARDIOLOGY Vinod Foster DO Dec 29, 2017 12:26
--- NOTE | 2017-12-29 13:53 | EKG ---
Date Performed: 12/29/2017 Time Performed: 05:09:24 PTAGE: 62 years EKG: Sinus rhythm with PVC(s) Prolonged QT interval Left anterior fascicular block Possible inferior infarct - age und etermined Possible anterior infarct - age undetermined Lateral T wave changes may be due to myocardia l ischemia Low QRS voltages in limb leads Abnormal ECG Since the PREVIOUS TRACING , no significant change noted PREVIOUS TRACIN12/28/2017 05.02 DOCTOR: Arleen Acharya Interpretating Date/Time 12/29/2017 13:53:06
[2017-12-29 17:22] LABS: HEMOGLOBIN A1C 5.4 % (4.3-6.0)
--- NOTE | 2017-12-29 19:36 | ECHRPT ---
Indication: CARDIOMYOPATHY CONCLUSIONS The left ventricular systolic function is severely reduced with an estimated ejection fraction less than 15%. Severely dilated left ventricle. Wall thickness is normal. The basal posterior wall is mildly hypokinetic; all other jerez are severe ly hypokinetic. Normal right ventricular size though possibly with severely reduced systolic function. Mild to moderate mitral valve regurgitation. Slight aortic valve sclerosis is present. There is trace to mild tricuspid valve regurgitation. The estimated pulmonary arterial pressure is 33 mmHg. BP: 130 / 102 HR: 80 Rhythm: Sinus MEASUREMENTS (Male / Female) Normal Values Technical Quality:Good 2D ECHO LV Diastolic Diameter PLAX 6.1 cm 4.2 - 5.9 / 3.9 - 5.3 cm LV Systolic Diameter PLAX 5.8 cm IVS Diastolic Thickness 1.0 cm 0.6 - 1.0 / 0.6 - 0.9 cm LVPW Diastolic Thickness 1.0 cm 0.6 - 1.0 / 0.6 - 0.9 cm LV Relative Wall Thickness 0.3 RV Internal Dim ED PLAX 2.9 cm LVOT Diameter 2.0 cm LA Systolic Diameter LX 4.0 cm 3.0 - 4.0 / 2.7 - 3.8 cm LV Ejection Fraction MOD 4C 14.7 % LV Cardiac Index MOD 4C 1275.2 cm/minm LV Ejection Fraction 4C AL 15.8 % LV Cardiac Index 4C AL 1420.8 cm/minm M-MODE Aortic Root Diameter MM 2.5 cm LA Systolic Diameter MM 3.7 cm LA Ao Ratio MM 1.5 AV Cusp Separation MM 1.6 cm DOPPLER AV Peak Velocity 124.0 cm/s AV Peak Gradient 6.2 mmHg LVOT Peak Velocity 74.5 cm/s LVOT Peak Gradient 2.2 mmHg AV Area Cont Eq pk 1.9 cm MV Area PHT 6.3 cm Mitral E Point Velocity 87.4 cm/s Mitral A Point Velocity 59.7 cm/s Mitral E to A Ratio 1.5 TR Peak Velocity 242.0 cm/s TR Peak Gradient 23.4 mmHg Right Atrial Pressure 10.0 mmHg Pulmonary Artery Systolic Pressu 33.4 mmHg Right Ventricular Systolic Press 33.4 mmHg PV Peak Velocity 65.2 cm/s PV Peak Gradient 1.7 mmHg FINDINGS LEFT VENTRICLE The left ventricular systolic function is severely reduced with an estimated ejection fraction less than 15%. Severely dilated left ventricle. Wall thickness is normal. The basal posterior wall is mildly hypokinetic; all other jerez are severe ly hypokinetic. RIGHT VENTRICLE Normal right ventricular size though possibly with severely reduced systolic function. LEFT ATRIUM The left atrial size is normal. RIGHT ATRIUM The right atrial size is normal. ATRIAL SEPTUM Normal atrial septal thickness without atrial level shunting by limited color doppler interrogation. AORTA The aortic root and proximal ascending aorta are normal in size on limited imaging. MITRAL VALVE Mild thickening of the mitral valve leaflets. Mild to moderate mitral valve regurgitation. AORTIC VALVE Trileaflet aortic valve. Slight aortic valve sclerosis is present. TRICUSPID VALVE Structurally normal tricuspid valve. There is trace to mild tricuspid valve regurgitation. The estimated pulmonary arterial pressure is 33 mmHg. PULMONARY VALVE No pulmonary valve regurgitation or stenosis. VESSELS The inferior vena cava is normal in size. PERICARDIUM No pericardial effusion. Adilson Elliott MD (Electronically Signed) Final Date:29 December 2017 19:35
[2017-12-29] MEDS: oxyCODONE/ACETAMINOPHEN 10 MG/325 MG TAB PO PRN (20:43)
[2017-12-30] VITALS (18 sets, daily range): BP systolic 102–115; BP diastolic 62–93; PULSE 56–100; RESP 16–18; TEMP 97.4–99.2; O2SAT 95–99
[2017-12-30] MEDS: NITROGLYCERIN 2% OINT 1 GM PACKET TOPICAL SCH (05:08)
[2017-12-30] MEDS: SODIUM CHLOR 0.9% 1000 ML INJ 1,000 ML IV SCH (05:09)
[2017-12-30 07:02] LABS: AUTOMATED NEUTROPHIL # 8.1 TH/MM3 (1.8-7.7); BASOPHIL # 0.1 TH/MM3 (0-0.2); BASOPHIL % 0.6 % (0.0-2.0); EOSINOPHIL # 0.2 TH/MM3 (0-0.4); EOSINOPHIL % 2.1 % (0.0-4.0); HEMATOCRIT 41.6 % (39.0-51.0); HEMOGLOBIN 14.1 GM/DL (13.0-17.0); LYMPH % 14.1 % (9.0-44.0); LYMPHOCYTE # 1.5 TH/MM3 (1.0-4.8); MEAN CORPUSCULAR HEMOGLOBIN 30.5 PG (27.0-34.0); MEAN CORPUSCULAR HGB CONC 33.9 % (32.0-36.0); MEAN PLATELET VOLUME 9.4 FL (7.0-11.0); MONO % 7.1 % (0.0-8.0); MONOCYTE # 0.8 TH/MM3 (0-0.9); NEUT % 76.1 % (16.0-70.0); PLATELET COUNT 216 TH/MM3 (150-450); RED BLOOD COUNT 4.63 MIL/MM3 (4.50-5.90); WHITE BLOOD COUNT 10.7 TH/MM3 (4.0-11.0)
[2017-12-30 07:18] LABS: ALBUMIN 3.1 GM/DL (3.4-5.0); AST (GOT) 20 U/L (15-37); BICARBONATE 22.4 MEQ/L (21.0-32.0); BLOOD UREA NITROGEN 18 MG/DL (7-18); CALCIUM 8.4 MG/DL (8.5-10.1); CHLORIDE 108 MEQ/L (98-107); CREATININE 1.18 MG/DL (0.60-1.30); GLOMERULAR FILTRATION RATE 63 ML/MIN (>89); GLUCOSE,RANDOM 96 MG/DL (74-106); SODIUM (NA) 141 MEQ/L (136-145)
[2017-12-30 07:19] LABS: ALT (GPT) 31 U/L (12-78); PHOSPHORUS 3.2 MG/DL (2.5-4.9)
[2017-12-30 07:22] LABS: ALKALINE PHOSPHATASE 74 U/L (45-117); TOTAL BILIRUBIN ADULT 0.7 MG/DL (0.2-1.0); TOTAL PROTEIN 6.1 GM/DL (6.4-8.2)
--- NOTE | 2017-12-30 08:31 | PD.CARD.PN ---
Subjective Subjective Remarks Note I did lengthy note yesterday - somehow it wasn't saved. Yest was SOB - None today. No angina Objective Medications Current Medications Medications (Trade) Dose Ordered Sig/Massimo Route Start Time Stop Time Status Last Admin Sodium Chloride 1,000 ml @ 100 mls/hr Q10H IV 12/27/17 20:00 12/30/17 05:09 (NS Flush) 2 ml UNSCH PRN IV FLUSH 12/28/17 13:45 (NS Flush) 2 ml BID IV FLUSH 12/28/17 21:00 12/29/17 20:43 (Aspirin Chew) 81 mg DAILY PO 12/29/17 09:00 12/29/17 08:31 (Plavix) 75 mg DAILY PO 12/29/17 09:00 12/29/17 08:31 (Zofran Inj) 4 mg Q4H PRN IV PUSH 12/28/17 13:45 (Lipitor) 40 mg DAILY PO 12/29/17 09:00 12/29/17 08:30 (Percocet 5-325 Mg) 1 tab Q6H PRN PO 12/28/17 14:45 (Percocet 10-325 Mg) 1 tab Q6H PRN PO 12/28/17 14:45 12/29/17 20:43 (Morphine Inj) 2 mg Q3H PRN IV PUSH 12/28/17 14:45 12/28/17 15:30 (Morphine Inj) 4 mg Q3H PRN IV PUSH 12/28/17 14:45 (Morphine Inj) 4 mg Q3H PRN IV PUSH 12/28/17 14:45 (Narcan Inj) 0.4 mg UNSCH PRN IV PUSH 12/28/17 14:45 (Coreg) 6.25 mg BID PO 12/29/17 09:00 12/29/17 20:43 (Prinivil) 10 mg DAILY PO 12/29/17 09:00 12/29/17 10:24 (KCl) 20 meq DAILY PO 12/30/17 09:00 UNV (Lasix) 40 mg DAILY PO 12/30/17 09:00 UNV Vital Signs / I&O Vital Signs Date Time Temp Pulse Resp B/P (MAP) Pulse Ox O2 Delivery O2 Flow Rate FiO2 12/30/17 07:30 99.2 83 16 115/74 (88) 95 12/30/17 06:07 99 12/30/17 05:00 86 12/30/17 04:00 98.0 88 102/76 (85) 97 12/30/17 04:00 84 12/30/17 02:00 84 12/30/17 01:00 80 12/30/17 00:00 88 12/29/17 23:53 97.9 76 104/77 (86) 94 12/29/17 23:00 83 12/29/17 22:00 84 12/29/17 21:00 94 12/29/17 20:00 98.5 84 138/105 (116) 99 12/29/17 20:00 88 12/29/17 19:00 96 12/29/17 18:01 92 12/29/17 17:00 84 12/29/17 16:01 80 12/29/17 15:30 97.9 93 18 124/95 (105) 100 12/29/17 15:00 80 12/29/17 14:00 78 12/29/17 13:01 78 12/29/17 12:00 80 12/29/17 11:15 97.6 93 18 115/85 (95) 95 12/29/17 11:00 83 12/29/17 10:00 138 12/29/17 09:00 88 12/29/17 08:30 97.5 84 18 138/102 (114) 100 I/O 12/29/17 12/29/17 12/29/17 12/30/17 12/30/17 12/30/17 07:00 15:00 23:00 07:00 15:00 23:00 Intake Total 1389 ml 720 ml 240 ml Output Total 2925 ml 1000 ml Balance 1389 ml -2205 ml -760 ml Intake Oral 400 ml 720 ml 240 ml IV Total 989 ml Output Urine Total 2925 ml 1000 ml # Voids 3 7 # Bowel Movements 0 Physical Exam GENERAL: Well developed, well nourished. No acute distress. HEENT: Jugular venous pressure is normal. CHEST: Lungs clear to auscultation bilaterally. Unlabored respiratory effort. CARDIAC: Regular rate and rhythm soft S3. ABDOMEN: Soft, nontender, no hepatosplenomegaly. Bowel sounds present. EXTREMITIES: No clubbing, cyanosis, or edema. Laboratory Laboratory Tests Test 4/6/18 06:04 White Blood Count 10.7 TH/MM3 Red Blood Count 4.63 MIL/MM3 Hemoglobin 14.1 GM/DL Hematocrit 41.6 % Mean Corpuscular Volume 90.0 FL Mean Corpuscular Hemoglobin 30.5 PG Mean Corpuscular Hemoglobin Concent 33.9 % Red Cell Distribution Width 14.0 % Platelet Count 216 TH/MM3 Mean Platelet Volume 9.4 FL Neutrophils (%) (Auto) 76.1 % Lymphocytes (%) (Auto) 14.1 % Monocytes (%) (Auto) 7.1 % Eosinophils (%) (Auto) 2.1 % Basophils (%) (Auto) 0.6 % Neutrophils # (Auto) 8.1 TH/MM3 Lymphocytes # (Auto) 1.5 TH/MM3 Monocytes # (Auto) 0.8 TH/MM3 Eosinophils # (Auto) 0.2 TH/MM3 Basophils # (Auto) 0.1 TH/MM3 CBC Comment DIFF FINAL Differential Comment Blood Urea Nitrogen 18 MG/DL Creatinine 1.18 MG/DL Random Glucose 96 MG/DL Total Protein 6.1 GM/DL Albumin 3.1 GM/DL Calcium Level 8.4 MG/DL Phosphorus Level 3.2 MG/DL Magnesium Level 2.0 MG/DL Alkaline Phosphatase 74 U/L Aspartate Amino Transf (AST/SGOT) 20 U/L Alanine Aminotransferase (ALT/SGPT) 31 U/L Total Bilirubin 0.7 MG/DL Sodium Level 141 MEQ/L Potassium Level 3.8 MEQ/L Chloride Level 108 MEQ/L Carbon Dioxide Level 22.4 MEQ/L Anion Gap 11 MEQ/L Estimat Glomerular Filtration Rate 63 ML/MIN Assessment and Plan Problem List: (1) Non-STEMI (non-ST elevated myocardial infarction) ICD Codes: I21.4 - Non-ST elevation (NSTEMI) myocardial infarction Status: Acute (2) Cardiomyopathy ICD Codes: I42.9 - Cardiomyopathy, unspecified (3) Acute systolic CHF (congestive heart failure) ICD Codes: I50.21 - Acute systolic (congestive) heart failure Plan: Change diuretic to PO (4) Tobacco abuse ICD Codes: Z72.0 - Tobacco use Plan: Has been told he needs to 100% quit now (5) Ventricular tachycardia ICD Codes: I47.2 - Ventricular tachycardia (6) Coronary artery disease ICD Codes: I25.10 - Atherosclerotic heart disease of [place] coronary artery without angina pectoris (7) Stented coronary artery ICD Codes: Z95.5 - Presence of coronary angioplasty implant and graft Assessment and Plan Contine ASA/Clopidogrel/BB/ACEI/diuretic/ K+/statin. No strenuous activity. OV 1 -2 weeks. Heart healthy diet Alec Pelaez MD Dec 30, 2017 08:31
[2017-12-30] MEDS ORDERED: FUROSEMIDE 40 MG TAB PO SCH (09:00)
[2017-12-30] MEDS ORDERED: POTASSIUM CHLORIDE 20 MEQ CONTROLLED RELEASE TAB PO SCH (09:00)
[2017-12-30] MEDS: CARVEDILOL 3.125 MG TAB PO SCH (09:16)
[2017-12-30] MEDS: SODIUM CHLORIDE 0.9% FLUSH 10 ML FLUSH IV FLUSH SCH (09:16)
[2017-12-30] MEDS: LISINOPRIL 10 MG TAB PO SCH (09:18)
[2017-12-30] MEDS: ATORVASTATIN 40 MG TAB PO SCH (09:18)
[2017-12-30] MEDS: ASPIRIN 81 MG CHEW TAB PO SCH (09:19)
[2017-12-30] MEDS: CLOPIDOGREL 75 MG TAB PO SCH (09:19)
--- NOTE | 2017-12-30 11:07 | HHI.PR ---
Subjective Remarks 62-year-old male with no significant past medical history last seen by a primary care physician in 1999 presents to the emergency department for the evaluation of shortness of breath and right arm pain. The patient states his shortness of breath started approximately 4-5 days ago he endorses right arm numbness and tingling with accompanying pain. He states he has chest pressure that is worse with lying down. He also states his shortness of breath is preventing him from sleeping at night because it is worse when he lies flat. Troponin elevated at 33.6. He denies any nausea/vomiting. No abdominal pain. No lateralizing signs/symptoms. 4-4 HAD CARDIAC CATH TODAY WITH DR OVALLES HAD 3VESSEL CAD AND HAD STENTS PLACED DW RN AND PT AND CASE MANAGEMENT AND FAMILY RECOMMENDED SMOKING CESSATION 4-5 NOT CLEARED BY CARDIOLOGY MEDICATIONS ADJUSTED DW RN AND PT AND CM AM LABS MEDS PER CARDIO 4-6 CLEARED BY CARDIOLOGY FOR DC DC TO HOME MEDS WRITTEN FOLLOW No clinic 1 week Follow-up with Dr. Ovalles in 1-2 Objective Vitals Vital Signs Date Time Temp Pulse Resp B/P (MAP) Pulse Ox O2 Delivery O2 Flow Rate FiO2 12/30/17 07:30 99.2 83 16 115/74 (88) 95 12/30/17 07:00 88 12/30/17 06:07 99 12/30/17 05:00 86 12/30/17 04:00 98.0 88 102/76 (85) 97 12/30/17 04:00 84 12/30/17 02:00 84 12/30/17 01:00 80 12/30/17 00:00 88 12/29/17 23:53 97.9 76 104/77 (86) 94 12/29/17 23:00 83 12/29/17 22:00 84 12/29/17 21:00 94 12/29/17 20:00 98.5 84 138/105 (116) 99 12/29/17 20:00 88 12/29/17 19:00 96 12/29/17 18:01 92 12/29/17 17:00 84 12/29/17 16:01 80 12/29/17 15:30 97.9 93 18 124/95 (105) 100 12/29/17 15:00 80 12/29/17 14:00 78 12/29/17 13:01 78 12/29/17 12:00 80 12/29/17 11:15 97.6 93 18 115/85 (95) 95 I/O 12/29/17 12/29/17 12/29/17 12/30/17 12/30/17 12/30/17 07:00 15:00 23:00 07:00 15:00 23:00 Intake Total 1389 ml 720 ml 240 ml Output Total 2925 ml 1000 ml Balance 1389 ml -2205 ml -760 ml Intake Oral 400 ml 720 ml 240 ml IV Total 989 ml Output Urine Total 2925 ml 1000 ml # Voids 3 7 # Bowel Movements 0 Result Diagram: 12/30/17 0604 12/30/17 0604 Other Results Laboratory Tests Test 12/27/17 17:08 12/28/17 02:00 12/28/17 10:56 12/29/17 04:45 White Blood Count 7.1 TH/MM3 6.9 TH/MM3 8.9 TH/MM3 Red Blood Count 5.14 MIL/MM3 4.41 MIL/MM3 4.73 MIL/MM3 Hemoglobin 15.6 GM/DL 13.6 GM/DL 14.2 GM/DL Hematocrit 47.4 % 39.8 % 43.0 % Mean Corpuscular Volume 92.2 FL 90.2 FL 91.0 FL Mean Corpuscular Hemoglobin 30.4 PG 30.9 PG 30.0 PG Mean Corpuscular Hemoglobin Concent 33.0 % 34.2 % 33.0 % Red Cell Distribution Width 14.1 % 14.0 % 14.4 % Platelet Count 238 TH/MM3 214 TH/MM3 223 TH/MM3 Mean Platelet Volume 9.4 FL 8.9 FL 9.5 FL Neutrophils (%) (Auto) 64.8 % 54.9 % 73.2 % Lymphocytes (%) (Auto) 22.5 % 32.1 % 15.5 % Monocytes (%) (Auto) 8.4 % 7.7 % 8.1 % Eosinophils (%) (Auto) 3.4 % 4.3 % 2.4 % Basophils (%) (Auto) 0.9 % 1.0 % 0.8 % Neutrophils # (Auto) 4.6 TH/MM3 3.8 TH/MM3 6.5 TH/MM3 Lymphocytes # (Auto) 1.6 TH/MM3 2.2 TH/MM3 1.4 TH/MM3 Monocytes # (Auto) 0.6 TH/MM3 0.5 TH/MM3 0.7 TH/MM3 Eosinophils # (Auto) 0.2 TH/MM3 0.3 TH/MM3 0.2 TH/MM3 Basophils # (Auto) 0.1 TH/MM3 0.1 TH/MM3 0.1 TH/MM3 CBC Comment DIFF FINAL DIFF FINAL DIFF FINAL Differential Comment Prothrombin Time 11.7 SEC Prothromb Time International Ratio 1.2 RATIO Activated Partial Thromboplast Time 26.7 SEC 35.3 SEC 33.0 SEC Blood Urea Nitrogen 24 MG/DL 23 MG/DL Creatinine 1.17 MG/DL 1.01 MG/DL Random Glucose 93 MG/DL 86 MG/DL Calcium Level 9.1 MG/DL 8.1 MG/DL Magnesium Level 2.1 MG/DL Sodium Level 141 MEQ/L 142 MEQ/L Potassium Level 5.1 MEQ/L 4.1 MEQ/L Chloride Level 107 MEQ/L 111 MEQ/L Carbon Dioxide Level 27.3 MEQ/L 23.8 MEQ/L Anion Gap 7 MEQ/L 7 MEQ/L Estimat Glomerular Filtration Rate 63 ML/MIN 75 ML/MIN Total Creatine Kinase 109 U/L Creatine Kinase MB 2.4 NG/ML Troponin I 33.60 NG/ML 26.20 NG/ML 22.30 NG/ML Total Bilirubin 0.5 MG/DL Direct Bilirubin 0.2 MG/DL Indirect Bilirubin 0.3 MG/DL Aspartate Amino Transf (AST/SGOT) 28 U/L Alanine Aminotransferase (ALT/SGPT) 49 U/L Alkaline Phosphatase 73 U/L Total Protein 5.6 GM/DL Albumin 3.0 GM/DL Triglycerides Level 68 MG/DL Cholesterol Level 117 MG/DL LDL Cholesterol 74 MG/DL HDL Cholesterol 29.3 MG/DL Cholesterol/HDL Ratio 3.99 RATIO Test 12/29/17 04:54 12/30/17 06:04 Blood Urea Nitrogen 24 MG/DL 18 MG/DL Creatinine 1.20 MG/DL 1.18 MG/DL Random Glucose 92 MG/DL 96 MG/DL Total Protein 6.0 GM/DL 6.1 GM/DL Albumin 3.0 GM/DL 3.1 GM/DL Calcium Level 8.5 MG/DL 8.4 MG/DL Phosphorus Level 2.7 MG/DL 3.2 MG/DL Magnesium Level 2.1 MG/DL 2.0 MG/DL Alkaline Phosphatase 81 U/L 74 U/L Aspartate Amino Transf (AST/SGOT) 23 U/L 20 U/L Alanine Aminotransferase (ALT/SGPT) 41 U/L 31 U/L Total Bilirubin 0.4 MG/DL 0.7 MG/DL Sodium Level 141 MEQ/L 141 MEQ/L Potassium Level 4.6 MEQ/L 3.8 MEQ/L Chloride Level 108 MEQ/L 108 MEQ/L Carbon Dioxide Level 24.8 MEQ/L 22.4 MEQ/L Anion Gap 8 MEQ/L 11 MEQ/L Estimat Glomerular Filtration Rate 61 ML/MIN 63 ML/MIN Hemoglobin A1c 5.4 % Total Creatine Kinase 117 U/L Triglycerides Level 77 MG/DL Cholesterol Level 134 MG/DL LDL Cholesterol 90 MG/DL HDL Cholesterol 28.9 MG/DL Cholesterol/HDL Ratio 4.63 RATIO Free Thyroxine 1.06 NG/DL Thyroid Stimulating Hormone 3rd Gen 1.300 uIU/ML White Blood Count 10.7 TH/MM3 Red Blood Count 4.63 MIL/MM3 Hemoglobin 14.1 GM/DL Hematocrit 41.6 % Mean Corpuscular Volume 90.0 FL Mean Corpuscular Hemoglobin 30.5 PG Mean Corpuscular Hemoglobin Concent 33.9 % Red Cell Distribution Width 14.0 % Platelet Count 216 TH/MM3 Mean Platelet Volume 9.4 FL Neutrophils (%) (Auto) 76.1 % Lymphocytes (%) (Auto) 14.1 % Monocytes (%) (Auto) 7.1 % Eosinophils (%) (Auto) 2.1 % Basophils (%) (Auto) 0.6 % Neutrophils # (Auto) 8.1 TH/MM3 Lymphocytes # (Auto) 1.5 TH/MM3 Monocytes # (Auto) 0.8 TH/MM3 Eosinophils # (Auto) 0.2 TH/MM3 Basophils # (Auto) 0.1 TH/MM3 CBC Comment DIFF FINAL Differential Comment Imaging Last Impressions Chest X-Ray 12/27/17 1626 Signed Impressions: Service Date/Time: Wednesday, December 27, 2017 16:40 - CONCLUSION: No acute cardiopulmonary disease demonstrated. Chapincito Patel MD Objective Remarks GENERAL: Awake alert and oriented 3 talkative not so cooperative appears stated age SKIN: Warm and dry. HEAD: Atraumatic. Normocephalic. EYES: Pupils equal and round. No scleral icterus. No injection or drainage. Extraocular muscles intact ENT: No nasal bleeding or discharge. Mucous membranes pink and moist. Tongue is midline NECK: Trachea midline. No JVD. Supple CARDIOVASCULAR: Regular rate and rhythm. S1-S2 no S3 or S4 no heave or thrill or rub or gallop RESPIRATORY: No accessory muscle use. Clear to auscultation. Breath sounds equal bilaterally. GASTROINTESTINAL: Abdomen soft, non-tender, nondistended. Hepatic and splenic margins not palpable. MUSCULOSKELETAL: Extremities without clubbing, cyanosis, or edema. No obvious deformities. RIGHT GROIN IS STABLE NEUROLOGICAL: Awake and alert. No obvious cranial nerve deficits. Motor grossly within normal limits. Five out of 5 muscle strength in the arms and legs. Normal speech. PSYCHIATRIC: INAppropriate mood and affect; insight and judgment ABnormal/ limited. Procedures 1. Left heart catheterization, left ventriculography, coronary angiography. 2. Primary stenting of the mid-left anterior descending artery. 3. Balloon angioplasty and stenting of the second diagonal branch of the left anterior descending artery. 4. Direct stenting of the left posterior descending artery branch. 5. Right femoral artery angiography with Angio-Seal placement. DESCRIPTION OF PROCEDURE: The patient was brought to the cardiac catheterization lab under urgent conditions. The right groin was prepped and draped in sterile fashion. Using 1% lidocaine for local anesthesia, a 6.5-[place] sheath was inserted in the right femoral artery. Next, left ventricular pressure was recorded using an angled pigtail catheter, followed by left ventriculography and then a pullback. Left coronary angiography was completed using a left 4.5 Cassandra catheter. Right coronary angiography was completed using a 3DRC catheter. I studied these films and elected to perform intervention. A 6-[place] XB 4.5 guiding catheter was used to engage the left main. I then did IFR measurements on the mid-LAD with a value of 0.89. I then directly stented the mid-LAD using a 3.0 x 22 mm [place] stent at 20 atmospheres. There was a nice step up in both sides of the stent with an excellent angiographic result. Next, I tried to wire the diagonal branch. I could not get the wire to easily cross and went to a Whisper wire; this still would not cross. Using a 1.5 balloon to buttress the wire, I was able to get it across the diagonal branch with the wire. Serial dilations were performed with the 1.5 balloon and then a 2.0 balloon and then I stented the diagonal using a 2.25 x 26 mm Josep stent deployed at 14 atmospheres. The proximal end of the stent was then postdilated using a 2.25 x 20 mm NonCompliant balloon. An excellent angiographic result was achieved. I then directed the Whisper wire down the distal circumflex and across the left posterior descending artery lesion. I then direct stented this utilizing a 2.5 x 12 mm Josep at 12 atmospheres with complete resolution of that stenosis. Guiding catheter was then removed. Angiography was then obtained of the right femoral artery via the sheath, followed by uncomplicated Angio-Seal placement with good hemostasis. There were no complications. The patient tolerated the procedure well. FINDINGS: I. HEMODYNAMICS: Left ventricular pressure is 105/7 with an end-diastolic pressure of 14. Aortic pressure is 122/79 with a mean of 99. There was no gradient during pullback from the left ventricle to the aorta. II. LEFT VENTRICULOGRAPHY: Left ventriculography shows a severely globally hypokinetic left ventricle. There was 1+ mitral regurgitation at the apex. The left ventricle actually looks akinetic. Estimated ejection fraction is no greater than 15%. III. CORONARY ANGIOGRAPHY: The left main coronary artery is large and normal. It bifurcates into the LAD and circumflex vessels. The left anterior descending artery gives off 2 diagonal branches. The first diagonal branch has irregularities only. The proximal LAD has about 20% to 30% disease. The mid-LAD after the second diagonal branch has a long 70% stenosis with an IFR of 0.79. The second diagonal branch has a 99% stenosis with GILBERT grade 1 flow. The circumflex artery is dominant. This vessel has diffuse disease distally. There are two 40-50% stenoses and then the posterior descending artery branch has a focal 90-95% stenosis. IV. RESULTS OF INTERVENTION: 1. Following stenting of the mid-LAD 0% residual stenosis had been achieved with GILBERT-3 flow. 2. Following stenting of the diagonal branch a 0% stenosis had been achieved with GILBERT-3 flow. 3. Following stenting of the left posterior descending artery branch, a 0% residual stenosis had been achieved with GILBERT-3 flow. CONCLUSIONS: 1. Severe 3-vessel coronary artery disease. 2. Critically severe LV dysfunction. 3. Successful drug-eluting stent implantation of the mid-left anterior descending, the second diagonal branch and the left posterior descending artery branch. PLAN: The patient may need to be continued on aspirin and Plavix long-term. We will introduce SERGIO inhibitor and beta blockers as hemodynamics permit, will check his lipid values and add statin therapy as appropriate. Alec Ovalles MD Medications and IVs Last Impressions Chest X-Ray 12/27/17 8433 Signed Impressions: Service Date/Time: Wednesday, December 27, 2017 16:40 - CONCLUSION: No acute cardiopulmonary disease demonstrated. Chapincito Patel MD A/P Assessment and Plan Assessment/plan: 1. NSTEMI Initial troponin 33.6 EKG shows NSR with PVCs; no ST segment elevation or depression, personally reviewed Cardiology consulted, appreciate assistance Heparin bolus and drip Nothing by mouth Morphine for pain Aspirin Coreg MV CAD 3 VESSELS STENTED 4-4 2. Hypertension As above OSTEOARTHRITIS PAIN CONTROL NEEDED CHECK TSH, FREE T4 HGBA1C, LIPIDS FEN NPO NS at 100 cc/hr Electrolytes: Monitor and replete when necessary Heparin ggt Case management consulted to assist with outpatient follow-up Contine ASA/Clopidogrel/BB/ACEI/diuretic/ K+/statin. No strenuous activity. OV 1 -2 weeks. Heart healthy diet per cardiology stop smoking Discharge Planning dc to home Vinod Foster DO Dec 30, 2017 11:07
[2017-12-30] MEDS ORDERED: POTA20TA5 PO (11:11)
[2017-12-30] MEDS ORDERED: PLAV75TA29 PO (11:11)
[2017-12-30] MEDS ORDERED: ATOR40TA16 PO (11:11)
[2017-12-30] MEDS ORDERED: ASPI81 PO (11:11)
[2017-12-30] MEDS ORDERED: CARV3.125 PO (11:11)
[2017-12-30] MEDS ORDERED: FURO40TA PO (11:11)
[2017-12-30] MEDS ORDERED: OXYC1TAB63 PO (11:11)
[2017-12-30] MEDS ORDERED: LISI10TA3 PO (11:11)
--- NOTE | 2017-12-30 11:12 | HHI.DS ---
Discharge Summary Admission Date Dec 27, 2017 at 18:48 Discharge Date: Dec 30, 2017 Admitting Diagnosis NSTEMI (1) Stented coronary artery ICD Code: Z95.5 - Presence of coronary angioplasty implant and graft Diagnosis: Principal (2) Acute systolic CHF (congestive heart failure) ICD Code: I50.21 - Acute systolic (congestive) heart failure Diagnosis: Principal (3) Cardiomyopathy ICD Code: I42.9 - Cardiomyopathy, unspecified Diagnosis: Secondary (4) Tobacco abuse ICD Code: Z72.0 - Tobacco use Diagnosis: Secondary (5) Coronary artery disease ICD Code: I25.10 - Atherosclerotic heart disease of [place] coronary artery without angina pectoris Diagnosis: Principal (6) Benign hypertension with coincident congestive heart failure ICD Code: I11.0 - Hypertensive heart disease with heart failure Diagnosis: Principal (7) Non-STEMI (non-ST elevated myocardial infarction) ICD Code: I21.4 - Non-ST elevation (NSTEMI) myocardial infarction Diagnosis: Principal Status: Acute (8) [place] ICD Code: I49.9 - Cardiac arrhythmia, unspecified Status: Acute Procedures 1. Left heart catheterization, left ventriculography, coronary angiography. 2. Primary stenting of the mid-left anterior descending artery. 3. Balloon angioplasty and stenting of the second diagonal branch of the left anterior descending artery. 4. Direct stenting of the left posterior descending artery branch. 5. Right femoral artery angiography with Angio-Seal placement. DESCRIPTION OF PROCEDURE: The patient was brought to the cardiac catheterization lab under urgent conditions. The right groin was prepped and draped in sterile fashion. Using 1% lidocaine for local anesthesia, a 6.5-[place] sheath was inserted in the right femoral artery. Next, left ventricular pressure was recorded using an angled pigtail catheter, followed by left ventriculography and then a pullback. Left coronary angiography was completed using a left 4.5 Cassandra catheter. Right coronary angiography was completed using a 3DRC catheter. I studied these films and elected to perform intervention. A 6-[place]izen [place] XB 4.5 guiding catheter was used to engage the left main. I then did IFR measurements on the mid-LAD with a value of 0.89. I then directly stented the mid-LAD using a 3.0 x 22 mm Cuero stent at 20 atmospheres. There was a nice step up in both sides of the stent with an excellent angiographic result. Next, I tried to wire the diagonal branch. I could not get the wire to easily cross and went to a Whisper wire; this still would not cross. Using a 1.5 balloon to buttress the wire, I was able to get it across the diagonal branch with the wire. Serial dilations were performed with the 1.5 balloon and then a 2.0 balloon and then I stented the diagonal using a 2.25 x 26 mm Cuero stent deployed at 14 atmospheres. The proximal end of the stent was then postdilated using a 2.25 x 20 mm NonCompliant balloon. An excellent angiographic result was achieved. I then directed the Whisper wire down the distal circumflex and across the left posterior descending artery lesion. I then direct stented this utilizing a 2.5 x 12 mm Cuero at 12 atmospheres with complete resolution of that stenosis. Guiding catheter was then removed. Angiography was then obtained of the right femoral artery via the sheath, followed by uncomplicated Angio-Seal placement with good hemostasis. There were no complications. The patient tolerated the procedure well. FINDINGS: I. HEMODYNAMICS: Left ventricular pressure is 105/7 with an end-diastolic pressure of 14. Aortic pressure is 122/79 with a mean of 99. There was no gradient during pullback from the left ventricle to the aorta. II. LEFT VENTRICULOGRAPHY: Left ventriculography shows a severely globally hypokinetic left ventricle. There was 1+ mitral regurgitation at the apex. The left ventricle actually looks akinetic. Estimated ejection fraction is no greater than 15%. III. CORONARY ANGIOGRAPHY: The left main coronary artery is large and normal. It bifurcates into the LAD and circumflex vessels. The left anterior descending artery gives off 2 diagonal branches. The first diagonal branch has irregularities only. The proximal LAD has about 20% to 30% disease. The mid-LAD after the second diagonal branch has a long 70% stenosis with an IFR of 0.79. The second diagonal branch has a 99% stenosis with GILBERT grade 1 flow. The circumflex artery is dominant. This vessel has diffuse disease distally. There are two 40-50% stenoses and then the posterior descending artery branch has a focal 90-95% stenosis. IV. RESULTS OF INTERVENTION: 1. Following stenting of the mid-LAD 0% residual stenosis had been achieved with GILBERT-3 flow. 2. Following stenting of the diagonal branch a 0% stenosis had been achieved with GILBERT-3 flow. 3. Following stenting of the left posterior descending artery branch, a 0% residual stenosis had been achieved with GILBERT-3 flow. CONCLUSIONS: 1. Severe 3-vessel coronary artery disease. 2. Critically severe LV dysfunction. 3. Successful drug-eluting stent implantation of the mid-left anterior descending, the second diagonal branch and the left posterior descending artery branch. PLAN: The patient may need to be continued on aspirin and Plavix long-term. We will introduce SERGIO inhibitor and beta blockers as hemodynamics permit, will check his lipid values and add statin therapy as appropriate. Alec Ovalles MD Brief History - From Admission 62-year-old male with no significant past medical history last seen by a primary care physician in 1999 presents to the emergency department for the evaluation of shortness of breath and right arm pain. The patient states his shortness of breath started approximately 4-5 days ago he endorses right arm numbness and tingling with accompanying pain. He states he has chest pressure that is worse with lying down. He also states his shortness of breath is preventing him from sleeping at night because it is worse when he lies flat. Troponin elevated at 33.6. He denies any nausea/vomiting. No abdominal pain. No lateralizing signs/symptoms. CBC/BMP: 12/30/17 0604 12/30/17 0604 Significant Findings Laboratory Tests Test 12/27/17 17:08 12/28/17 02:00 12/28/17 10:56 12/29/17 04:45 Monocytes (%) (Auto) 8.4 % (0.0-8.0) 8.1 % (0.0-8.0) Prothrombin Time 11.7 SEC (9.8-11.6) Blood Urea Nitrogen 24 MG/DL (7-18) 23 MG/DL (7-18) Estimat Glomerular Filtration Rate 63 ML/MIN (>89) 75 ML/MIN (>89) Troponin I 33.60 NG/ML (0.02-0.05) 26.20 NG/ML (0.02-0.05) 22.30 NG/ML (0.02-0.05) Red Blood Count 4.41 MIL/MM3 (4.50-5.90) Eosinophils (%) (Auto) 4.3 % (0.0-4.0) Activated Partial Thromboplast Time 35.3 SEC (24.3-30.1) 33.0 SEC (24.3-30.1) Calcium Level 8.1 MG/DL (8.5-10.1) Chloride Level 111 MEQ/L (98-107) Total Protein 5.6 GM/DL (6.4-8.2) Albumin 3.0 GM/DL (3.4-5.0) Cholesterol Level 117 MG/DL (120-200) HDL Cholesterol 29.3 MG/DL (40.0-60.0) Neutrophils (%) (Auto) 73.2 % (16.0-70.0) Test 12/29/17 04:54 12/30/17 06:04 Blood Urea Nitrogen 24 MG/DL (7-18) Total Protein 6.0 GM/DL (6.4-8.2) 6.1 GM/DL (6.4-8.2) Albumin 3.0 GM/DL (3.4-5.0) 3.1 GM/DL (3.4-5.0) Chloride Level 108 MEQ/L (98-107) 108 MEQ/L (98-107) Estimat Glomerular Filtration Rate 61 ML/MIN (>89) 63 ML/MIN (>89) HDL Cholesterol 28.9 MG/DL (40.0-60.0) Neutrophils (%) (Auto) 76.1 % (16.0-70.0) Neutrophils # (Auto) 8.1 TH/MM3 (1.8-7.7) Calcium Level 8.4 MG/DL (8.5-10.1) Imaging Last Impressions Chest X-Ray 12/27/17 1626 Signed Impressions: Service Date/Time: Wednesday, December 27, 2017 16:40 - CONCLUSION: No acute cardiopulmonary disease demonstrated. Chapincito Patel MD PE at Discharge GENERAL: Awake alert and oriented 3 talkative not so cooperative appears stated age SKIN: Warm and dry. HEAD: Atraumatic. Normocephalic. EYES: Pupils equal and round. No scleral icterus. No injection or drainage. Extraocular muscles intact ENT: No nasal bleeding or discharge. Mucous membranes pink and moist. Tongue is midline NECK: Trachea midline. No JVD. Supple CARDIOVASCULAR: Regular rate and rhythm. S1-S2 no S3 or S4 no heave or thrill or rub or gallop RESPIRATORY: No accessory muscle use. Clear to auscultation. Breath sounds equal bilaterally. GASTROINTESTINAL: Abdomen soft, non-tender, nondistended. Hepatic and splenic margins not palpable. MUSCULOSKELETAL: Extremities without clubbing, cyanosis, or edema. No obvious deformities. RIGHT GROIN IS STABLE NEUROLOGICAL: Awake and alert. No obvious cranial nerve deficits. Motor grossly within normal limits. Five out of 5 muscle strength in the arms and legs. Normal speech. PSYCHIATRIC: INAppropriate mood and affect; insight and judgment ABnormal/ limited. Hospital Course 62-year-old male with no significant past medical history last seen by a primary care physician in 1999 presents to the emergency department for the evaluation of shortness of breath and right arm pain. The patient states his shortness of breath started approximately 4-5 days ago he endorses right arm numbness and tingling with accompanying pain. He states he has chest pressure that is worse with lying down. He also states his shortness of breath is preventing him from sleeping at night because it is worse when he lies flat. Troponin elevated at 33.6. He denies any nausea/vomiting. No abdominal pain. No lateralizing signs/symptoms. 4-4 HAD CARDIAC CATH TODAY WITH DR OVALLES HAD 3VESSEL CAD AND HAD STENTS PLACED TONG RN AND PT AND CASE MANAGEMENT AND FAMILY RECOMMENDED SMOKING CESSATION 4-5 NOT CLEARED BY CARDIOLOGY MEDICATIONS ADJUSTED DW RN AND PT AND AM LABS MEDS PER CARDIO 4-6 CLEARED BY CARDIOLOGY FOR DC DC TO HOME MEDS WRITTEN FOLLOW [facility] 1 week Follow-up with Dr. Ovalles in 1-2 Pt Condition on Discharge: Good Discharge Disposition: Discharge Home Discharge Time: > 30 minutes Discharge Instructions DIET: Follow Instructions for: Heart Healthy Diet, Diabetic Diet Additional Diet Instructions: Stop smoking Activities you can perform: Regular-No Restrictions, See Additionl Instruction Other Activity Instructions: Stop smoking Follow up Referrals: Cardiology - 10 Days with Alec Ovalles MD PCP Follow-up - 3-5 Days with [facility] New Medications: Aspirin (Tgt Aspirin) 81 Mg Chw 81 MG PO DAILY for Blood Clot Prevention, #90 EA Atorvastatin (Atorvastatin) 40 Mg Tab 40 MG PO DAILY for Cholesterol Management, #30 TAB Carvedilol (Coreg) 3.125 Mg Tab 6.25 MG PO BID for Blood Pressure Management, #60 TAB Clopidogrel (Plavix) 75 Mg Tab 75 MG PO DAILY for Blood Clot Prevention, #30 TAB Furosemide (Furosemide) 40 Mg Tab 40 MG PO DAILY for Blood Pressure Management, #30 TAB Lisinopril (Lisinopril) 10 Mg Tab 10 MG PO DAILY for Blood Pressure Management, #30 TAB Oxycodone HCl/Acetaminophen (Oxycodone-Acetaminophen 5-325) 5 Mg-325 Mg Tablet 1 TAB PO Q6H PRN for PAIN SCALE 3 TO 5, #10 TAB Potassium Chloride Microencaps (Potassium Chloride Microencaps) 20 Meq Tab 20 MEQ PO DAILY for Blood Pressure Management, #30 TAB Vinod Foster DO Dec 30, 2017 11:12
[2017-12-30] MEDS ORDERED: NICO14DI4 T-DERMAL (11:13)
== END 2017-12-30 18:05 | disposition home or self-care (01) | DRG 246 ==
LOC: NEPC 16:15 → NEDA 18:48 → HCIS 20:44
PROVIDERS: ADMIT Hospitalist; ATTEND Hospitalist
PROC: 4A023N7 Measurement of Cardiac Sampling and Pressure, Left Heart, Percutaneous Approach (ICD-10-PCS; 2017-12-28)
PROC: B2111ZZ Fluoroscopy of Multiple Coronary Arteries using Low Osmolar Contrast (ICD-10-PCS; 2017-12-28)
PROC: B2151ZZ Fluoroscopy of Left Heart using Low Osmolar Contrast (ICD-10-PCS; 2017-12-28)
PROC: B41F1ZZ Fluoroscopy of Right Lower Extremity Arteries using Low Osmolar Contrast (ICD-10-PCS; 2017-12-28)
PROC: 027236Z Dilation of Coronary Artery, Three Arteries with Three Drug-eluting Intraluminal Devices, Percutaneous Approach (ICD-10-PCS; principal; 2017-12-28 08:45)
DX: I21.4 Non-ST elevation (NSTEMI) myocardial infarction (principal); I50.21 Acute systolic (congestive) heart failure; I47.2 Ventricular tachycardia; I42.9 Cardiomyopathy, unspecified; I11.0 Hypertensive heart disease with heart failure; I49.3 Ventricular premature depolarization; I25.10 Atherosclerotic heart disease of native coronary artery without angina pectoris; F17.210 Nicotine dependence, cigarettes, uncomplicated; M19.90 Unspecified osteoarthritis, unspecified site; Z82.49 Family history of ischemic heart disease and other diseases of the circulatory system; Z91.19 Patient's noncompliance with other medical treatment and regimen; Z23 Encounter for immunization
CPT/HCPCS: 71046; 80048; 80053; 80061; 80076; 82550; 82552; 83036; 83735; 84100; 84439; 84443; 84484; 85002; 85025; 85610; 85730; 90686; 90732; 92928; 92929; 92934; 93005; 93306; 93458; 93571; 99152; 99153; 99291; C1725; C1760; C1769; C1874; C1887; C1893; G0269; J0583; J1644; J1940; J2250; J2270; J7030; Q2038; Q9967